=== PATIENT | female | born 1935 | race Caucasian/White ===

== ENCOUNTER 2017-08-10 07:44 | Observation (INO) ==
--- NOTE | 2017-08-10 07:58 | Emergency Department Note ---
Disposition Clinical Impression: TIA (transient ischemic attack) Qualifiers: Transient cerebral ischemia type: unspecified Qualified Code(s): G45.9 - Transient cerebral ischemic attack, unspecified Disposition: Admitted As Inpatient General Adult HPI - General Chief complaint: ED Altered Mental Status Time Seen by Provider: 08/10/17 07:47 Source: EMS Limitations: no limitations - History of Present Illness Pain Scale: 7 Past Medical History - Past Medical History Medical history: Reports: diabetes, hyperlipidemia, hypertension Psychiatric history: Reports: anxiety, depression - Social History Smoking Status: Never smoker Alcohol use: Reports: none Drug use: Reports: none Physical Exam - General Limitations: no limitations General appearance: alert, in no apparent distress Course Vital Signs Temperature 98.9 F 08/10/17 07:46 Pulse Rate 88 08/10/17 07:46 Respiratory Rate 18 08/10/17 07:46 Blood Pressure 199/75 08/10/17 07:46 O2 Sat by Pulse Oximetry 93 08/10/17 07:46 Temperature 98.9 F 08/10/17 07:46 Pulse Rate 88 08/10/17 07:46 Respiratory Rate 18 08/10/17 07:46 Blood Pressure 199/75 08/10/17 07:46 O2 Sat by Pulse Oximetry 93 08/10/17 07:46 Attestation Statement - Attestation Attestation: I examined this patient and my medical decision-making was reviewed with the Resident Physician. I agree with the documented findings, disposition and treatment plan as described except to the extent set forth below. 82 year old female prsentes to the ED with complaints of HTN and headache and stats that 1999 last night she starteed to experience some difficulty wiht speech in the fashion of trying to get out her words but no other focal neuro defecits. Katel[place]et went to sleep and this night it had worsened. WE will do TIA workp with admission to hospital for TIA r/o CVA
[2017-08-10] MEDS ORDERED: Metoclopramide 10 MG/2 ML VIAL IVP ONE (08:14)
[2017-08-10] MEDS ORDERED: 0.9 % Sodium Chloride 500 ML IVC ONE ×2 (08:14→09:37)
--- NOTE | 2017-08-10 08:14 | Emergency Department Note ---
Disposition Clinical Impression: TIA (transient ischemic attack) Qualifiers: Transient cerebral ischemia type: unspecified Qualified Code(s): G45.9 - Transient cerebral ischemic attack, unspecified Disposition: Admitted As Inpatient Forms: ED Satisfaction Letter General Adult HPI - General Chief complaint: ED Altered Mental Status Time Seen by Provider: 08/10/17 07:47 Source: EMS Mode of arrival: ambulatory Limitations: no limitations Nursing Notes Reviewed: Yes Vital Signs Reviewed: Yes - History of Present Illness HPI Narrative: Patient is an 82-year-old female DM, HTN, and HLD presents for evaluation of confusion. According to the patient last night around 8:00 PM she was experiencing confusion and stating questions such as asking her when he got home from work when in fact her was home the entire time. states that she continue to make remarks like this until going to bed and then this morning she is having difficulty recalling facts as well. She is also having difficulty thinking of the appropriate words to say when she was trying to speak. She denies any focal neurological deficits. She has complained of a headache around her left eye that is a 4/10 pain and pressure like that has been going on for the past 3 days. States that she has a history of migraines however this headache is not as intense as her migraines. The patient also states that she has been under a lot of stress due to her son having a debilitating terminal illness and she has been very upset about this. Pain Scale: 7 - Related Data Allergies Allergy/AdvReac Type Severity Reaction Status Date / Time Sulfa (Sulfonamide AdvReac See Verified 08/10/17 09:37 Antibiotics) Comments All systems ED: reviewed and negative except as stated. Review of Systems: As Per HPI Constitutional: Denies: fever, chills ENT ED: Denies: congestion Cardiovascular: Denies: chest pain, palpitations, dyspnea on exertion, orthopnea , edema, syncope Respiratory: Denies: cough, dyspnea, wheezes Gastrointestinal: Denies: abdominal pain, nausea, vomiting, diarrhea Genitourinary: Denies: urgency, dysuria Musculoskeletal: Denies: back pain, neck pain Integumentary: Denies: rash Neurological: Reports: headache, confusion. Denies: weakness, numbness, paresthesias, abnormal gait, vertigo Past Medical History - Past Medical History Attestation: Yes The following information was validated with the patient. Medical history: Reports: diabetes, hyperlipidemia, hypertension Psychiatric history: Reports: anxiety, depression - Social History Smoking Status: Never smoker Alcohol use: Reports: none Drug use: Reports: none Physical Exam CONSTITUTIONAL: Alert and oriented X3, well-nourished, well appearing, in no apparent distress HEAD: Normocephalic; atraumatic. EYES: PERRL, no scleral icterus. NOSE: The nose is normal in appearance without rhinorrhea RESP: Normal chest excursion with respiration; breath sounds clear and equal bilaterally; no wheezes, rhonchi, or rales CARD: Regular rhythm, without murmurs, rub or gallop ABD: Non-distended; non-tender, soft,without rigidity, rebound or guarding SKIN: Normal for age and race; warm and dry; no apparent lesions NEUROLOGICAL: Patient is alert and oriented times three. Cranial nerves III- XII are intact. Sensory and motor functions are intact. Strength is 5/5 for flexion and extension in all 4 extremities. Patellar DTRS are equal and intact. Finger to nose testing is equal and normal bilaterally. - General Limitations: no limitations General appearance: alert, in no apparent distress Course Course Narrative: Plan at this time is for an altered mental status workup of the patient which will include a head CT, cardiac evaluation, and investigation for any source of infection. We will also treat the patient's headache with a migraine cocktail excluding Toradol until her CT comes back negative. Pending results of lab work will determine disposition and consultation to neuro. Vital Signs Temperature 98.9 F 08/10/17 07:46 Pulse Rate 88 08/10/17 07:46 Respiratory Rate 18 08/10/17 07:46 Blood Pressure 199/75 08/10/17 07:46 O2 Sat by Pulse Oximetry 93 08/10/17 07:46 Temperature 98.9 F 08/10/17 07:46 Pulse Rate 88 08/10/17 07:46 Respiratory Rate 18 08/10/17 07:46 Blood Pressure 199/75 08/10/17 07:46 O2 Sat by Pulse Oximetry 93 08/10/17 07:46 Medical Decision Making - Medical Records Medical records reviewed: Yes I reviewed the patient's medical records. - Lab Data Result diagrams: 08/10/17 08:14 08/10/17 08:14 Lab Results 08/10/17 08/10/1718 Range/Units 07:54 08:14 08:14 WBC 8.9 (4.3-11.1) K/mcL RBC 4.02 (3.82-4.97) M/mcL Hgb 12.3 (11.5-15.4) g/dL Hct 36.3 (35.3-44.9) % MCV 90.3 (83.0-100.0) fL MCH 30.6 (28.0-33.3) pg MCHC 33.9 (31.6-35.5) g/dL RDW 12.1 (11.5-14.5) % Plt Count 328 (140-400) K/mcL MPV 8.7 L (9.4-12.4) fL Immature Gran % 0.4 (0-4) % Seg Neutrophils % 68.8 % Lymphocytes % 19.1 % Monocytes % 10.2 % Eosinophils % 0.8 % Basophils % 0.7 % Neutrophils # 6.1 (1.6-8.9) K/mcL Lymphocytes # 1.7 (0.6-4.6) K/mcL Monocytes # 0.9 (0.0-1.3) K/mcL Eosinophils # 0.1 (0.0-0.6) K/mcL Basophils # 0.1 (0.0-0.2) K/mcL PT 13.0 H (9.4-12.1) Seconds INR 1.2 APTT 32.2 (26.0-36.0) Seconds Sodium (136-145) mEq/L Potassium (3.5-5.1) mEq/L Chloride (98-107) mEq/L Carbon Dioxide (23-29) mEq/L BUN (8-23) mg/dL Creatinine (0.60-1.20) mg/dL Est GFR ( Amer) (> 60) Est GFR (Non-Af Amer) (> 60) BUN/Creatinine Ratio (6-26) Glucose (70-105) mg/dL POC Glucose 251 H (70-99) mg/dL Calculated Osmolality (280-300) Calcium (8.6-10.3) mg/dL Total Bilirubin (0.3-1.0) mg/dL Direct Bilirubin (0.0-0.2) mg/dL Indirect Bilirubin (0.0-1.2) mg/dL AST (13-39) Units/L ALT (7-52) Units/L Alkaline Phosphatase (34-104) Units/L Troponin I (< 0.04) ng/mL Serum Total Protein (6.4-8.9) g/dL Albumin (3.5-5.7) g/dL Globulin (2.4-3.5) g/dL Albumin/Globulin Ratio (1.1-2.2) TSH (0.340-5.600) mcIU/mL Ethyl Alcohol (Less than 10) mg/dL 08/10/17 Range/Units 08:14 WBC (4.3-11.1) K/mcL RBC (3.82-4.97) M/mcL Hgb (11.5-15.4) g/dL Hct (35.3-44.9) % MCV (83.0-100.0) fL MCH (28.0-33.3) pg MCHC (31.6-35.5) g/dL RDW (11.5-14.5) % Plt Count (140-400) K/mcL MPV (9.4-12.4) fL Immature Gran % (0-4) % Seg Neutrophils % % Lymphocytes % % Monocytes % % Eosinophils % % Basophils % % Neutrophils # (1.6-8.9) K/mcL Lymphocytes # (0.6-4.6) K/mcL Monocytes # (0.0-1.3) K/mcL Eosinophils # (0.0-0.6) K/mcL Basophils # (0.0-0.2) K/mcL PT (9.4-12.1) Seconds INR APTT (26.0-36.0) Seconds Sodium 130 L (136-145) mEq/L Potassium 3.8 (3.5-5.1) mEq/L Chloride 95 L (98-107) mEq/L Carbon Dioxide 24 (23-29) mEq/L BUN 26 H (8-23) mg/dL Creatinine 1.12 (0.60-1.20) mg/dL Est GFR ( Amer) 56 L (> 60) Est GFR (Non-Af Amer) 47 L (> 60) BUN/Creatinine Ratio 23 (6-26) Glucose 266 H (70-105) mg/dL POC Glucose (70-99) mg/dL Calculated Osmolality 284 (280-300) Calcium 9.1 (8.6-10.3) mg/dL Total Bilirubin 0.7 (0.3-1.0) mg/dL Direct Bilirubin 0.2 (0.0-0.2) mg/dL Indirect Bilirubin 0.5 (0.0-1.2) mg/dL AST 12 L (13-39) Units/L ALT 15 (7-52) Units/L Alkaline Phosphatase 66 (34-104) Units/L Troponin I 0.03 (< 0.04) ng/mL Serum Total Protein 7.5 (6.4-8.9) g/dL Albumin 3.8 (3.5-5.7) g/dL Globulin 3.7 H (2.4-3.5) g/dL Albumin/Globulin Ratio 1.0 L (1.1-2.2) TSH 1.831 (0.340-5.600) mcIU/mL Ethyl Alcohol 10 H (Less than 10) mg/dL - Radiology Data Radiology results reviewed: Yes I reviewed the patient's radiology results. Chest X-Ray 08/10/17 08:08 IMPRESSION: No acute process. D/ / Aldair Kirkpatrick MD / Aldair Kirkpatrick MD Interpreting Provider: Aldair Kirkpatrick MD Head CT 08/10/17 08:09 IMPRESSION: No acute intracranial abnormality. D/ / Aldair Kirkpatrick MD / Aldair Kirkpatrick MD Interpreting Provider: Aldair Kirkpatrick MD - EKG Data EKG #1 EKG attestation: Yes I reviewed and interpreted this EKG. EKG results narrative: EKG done at 7:47 shows sinus rhythm at a rate of 87 bpm. Normal axis. IN is 184, QRS is 90, QT is 366 and QTc is 410 and these are within normal limits. No signs of ST elevation, ST depression or Q waves present. No signs of ischemia.
[2017-08-10 08:32] LABS: Basophils # 0.1 K/mcL (0.0-0.2); Basophils % 0.7 %; Eosinophils # 0.1 K/mcL (0.0-0.6); Eosinophils % 0.8 %; Hematocrit 36.3 % (35.3-44.9); Hemoglobin 12.3 g/dL (11.5-15.4); Immature Granulocytes % 0.4 % (0-4); Lymphocytes # 1.7 K/mcL (0.6-4.6); Lymphocytes % 19.1 %; Mean Corpuscular HGB Conc 33.9 g/dL (31.6-35.5); Mean Corpuscular Hemoglobin 30.6 pg (28.0-33.3); Mean Corpuscular Volume 90.3 fL (83.0-100.0); Mean Platelet Volume 8.7 fL (9.4-12.4); Monocytes # 0.9 K/mcL (0.0-1.3); Monocytes % 10.2 %; Neutrophils # 6.1 K/mcL (1.6-8.9); Platelet Count 328 K/mcL (140-400); Red Blood Count 4.02 M/mcL (3.82-4.97); Red Cell Distribution Width 12.1 % (11.5-14.5); Segmented Neutrophils % 68.8 %
[2017-08-10 08:43] LABS: INR 1.2
[2017-08-10 08:45] LABS: Activated Partial Thrombo Time 32.2 Seconds (26.0-36.0)
[2017-08-10 08:55] LABS: Albumin 3.8 g/dL (3.5-5.7); Bilirubin,Direct 0.2 mg/dL (0.0-0.2); Bilirubin,Indirect 0.5 mg/dL (0.0-1.2); Bilirubin,Total 0.7 mg/dL (0.3-1.0); Calcium 9.1 mg/dL (8.6-10.3); Globulin 3.7 g/dL (2.4-3.5); Potassium 3.8 mEq/L (3.5-5.1); Total Protein 7.5 g/dL (6.4-8.9); Troponin I 0.03 ng/mL (< 0.04)
[2017-08-10 09:06] LABS: Thyroid Stimulating Hormone 1.831 mcIU/mL (0.340-5.600)
[2017-08-10 10:45] LABS: Bilirubin,Urine Negative (Negative); Blood,Urine Trace-lysed (Negative); Clarity,Urine Clear (Clear); Color,Urine Yellow (Yellow); Glucose,Urine (UA) Normal (Normal); Ketones,Urine Trace mg/dL (Negative); Leukocyte Esterase,Urine Large (Negative); Nitrite,Urine Negative (Negative); PH,Urine 6.5 pH Units (5.0-8.0); Protein,Urine 30 mg/dL (Neg-Trace); Urobilinogen,Urine Normal (Normal)
[2017-08-10 10:55] LABS: Bacteria,Urine Many per hpf (None-Few); RBC,Urine 0-3 per hpf (0-3)
--- NOTE | 2017-08-10 13:12 | Internal Med History&Physical ---
Date of Encounter: 08/10/17 Time of Encounter: 13:10 Internal Medicine - H&P: HPI Admitted From: Emergency Dept Plans for Post Hospital Care: Home History of present illness: Ms. Main is a 82 year old female diabetes, HTN, hypothyroidism, anxiety, and HLD. Pt states 3 nights ago she was having a bad sinus CHAVARRIA. She states last night around 8pm she was confused and talking strange. Her who was at bedside during evaluation state pt was having difficulty finding her words. Pt also states she has noticed some jerky movements in her hands. She states her jerky movements resolved since she stopped taking Duloxetine on Fri. Both pt and states they have both been under a lot of stress. They have 2 children and their son was diagnosed with a rare disorder called MSA. He been battling the condition for 8 years now. Pt states things are nearing the end. In ED WBC 8.9, hgb 12.3, hct 36.3, plt 328. PT 13.0, INR 1.2. Na 130, K 3.8, BUN 26, C 1.12 AST 12, ALT 15, Alk phos 66. Urine analysis trace ketones, trace blood, neg nitrite, many bacteria. CT head non-contrast IMPRESSION: No acute intracranial abnormality. Chest x ray IMPRESSION: No acute process. Past Med Surg Social Fam HX - Past Medical History Medical history: diabetes, hyperlipidemia, hypertension, thyroid disease Psychiatric history: anxiety, depression - Social History Smoking Status: Never smoker Alcohol use: none Drug use: none Internal Medicine - H&P: Meds Acetaminophen [Tylenol] 1,000 mg PO TID PRN 08/10/17 [History] Aspirin [Lo-Dose Aspirin EC] 81 mg PO DAILY 08/10/17 [History] Cholecalciferol (D-3) [Vitamin D] 2,000 unit PO DAILY 08/10/17 [History] DULoxetine [Cymbalta] 40 mg PO DAILY 08/10/17 [History] Doxazosin Mesylate [Cardura] 2 mg PO HS 08/10/17 [History] Gabapentin [Neurontin] 400 mg PO BID 08/10/17 [History] Gabapentin [Neurontin] 800 mg PO HS 08/10/17 [History] Levothyroxine [Synthroid] 50 mcg PO 0630 08/10/17 [History] Lovastatin [Lovastatin] 40 mg PO HS 08/10/17 [History] Metoprolol [Lopressor] 50 mg PO BID 08/10/17 [History] Multivit-Min/FA/Lycopen/Lutein [Centrum Silver Tablet] 1 tab PO DAILY 08/10/17 [ History] Sitagliptin Phosphate [Januvia] 50 mg PO DAILY 08/10/17 [History] Valsartan [Valsartan] 320 mg PO DAILY 08/10/17 [History] glipiZIDE [Glucotrol] 5 mg PO BID 08/10/17 [History] hydroCHLOROthiazide [Hydrochlorothiazide] 25 mg PO DAILY 08/10/17 [History] 3 Allergy/AdvReac Type Severity Reaction Status Date / Time Sulfa (Sulfonamide AdvReac See Verified 08/10/17 09:37 Antibiotics) Comments All Systems PM: A 10-system review of systems was performed and is negative for pertinent findings except as documented above in the HPI. - Constitutional Vitals: Temp Pulse Resp BP Pulse Ox 98.9 F 88 18 199/75 93 08/10/17 07:46 08/10/17 07:46 08/10/17 07:46 08/10/17 07:46 08/10/17 07:46 General appearance: Present: A&O X 3, no acute distress - Head Head exam: Present: atraumatic, normocephalic - Eye Eye exam: Present: PERRL, conjuntiva pink, sclera anicteric Pupils: Present: PERRL - Neck Neck exam general surgery: Present: supple, trachea midline. Absent: lymphadenopathy - Respiratory Respiratory exam: Present: CTAB. Absent: accessory muscle use, rales, rhonchi, wheezes - Cardiovascular Cardiovascular exam: Present: RRR, +S1, +S2. Absent: diastolic murmur, gallop, rubs, systolic murmur - GI/Abdominal GI/Abdominal exam: Present: normal bowel sounds, soft, no peritoneal signs. Absent: distended, tenderness - Extremities Exam Extremities exam: Present: warm, radial pulses palpable and symmetrical. Absent : calf tenderness, cyanotic, pedal edema - Neurological Exam Neurological exam: Present: CN II-XII intact, oriented X3, no focal deficits. Absent: pronater drift, facial droop, speech deficit - Skin Skin exam: Present: dry, intact Internal Med - H&P Results - Labs CBC & Chem 7: 08/10/17 08:14 08/10/17 08:14 - Assessment and plan (1) TIA (transient ischemic attack) Current Visit: Yes Status: Acute Assessment and plan: Pt states she was having difficulty finding words. She thinks this may be related to her Duloxetine. She denies difficulty swallowing, walking or any other focal weakness. Her symptoms have completely resolved. Will check MRI brain/MRA/Bilateral carotid doppler/echo. Qualifiers: Transient cerebral ischemia type: unspecified Qualified Code(s): G45.9 - Transient cerebral ischemic attack, unspecified (2) Abnormal urine Current Visit: Yes Status: Acute Assessment and plan: Will check urine culture and sensitivity. (3) HTN (hypertension) Current Visit: Yes Status: Chronic Assessment and plan: HCTX, lopressor, and Valsartan Qualifiers: Qualified Code(s): I10 - Essential (primary) hypertension (4) HLD (hyperlipidemia) Current Visit: Yes Status: Chronic Assessment and plan: Will resume home dose statin Qualifiers: Qualified Code(s): E78.5 - Hyperlipidemia, unspecified (5) Diabetes type 2, controlled Current Visit: Yes Status: Chronic Assessment and plan: Glipizide and Sitagliptin Qualifiers: Qualified Code(s): E11.9 - Type 2 diabetes mellitus without complications (6) Anxiety and depression Current Visit: Yes Status: Acute Assessment and plan: Will hold Duloxetine for now. - Time Spent With Patient Total time spent is greater than 50% in coordination of care (as documented) at patient's floor/unit and/or counseling patient: 25 - 35 minutes
--- NOTE | 2017-08-10 14:32 | Neurology - Consult Note ---
Date of Encounter: 08/10/17 Time of Encounter: 14:26 Assessment and Plan (1) TIA (transient ischemic attack) Current Visit: Yes Status: Acute 82 year old woman with HTN, DM, arthritis on Gabapentin, depression on Cymbalta who developed acute onset of confusion and word finding difficulty, with rapid improvement withintn 24 hours, without focal neurological deficits. Symptoms are most consistent with mild diffuse encephalopathy and i suspect hyperglycemia and/or elevated BP causing her symptoms, although small embolic event can be missed on CT of head. Agree with TIA/CVA work up including MRI of brain, carotid artery duplex and echocardiography. Agree with aspirin 81mg daily. Continue medical and supportive care. Expect her to continue to improve. total time spent on the case is approximately 50 minutes Qualifiers: Transient cerebral ischemia type: unspecified Qualified Code(s): G45.9 - Transient cerebral ischemic attack, unspecified History of Present Illness Chief complaint: headache, confusion HPI: Ms. Main is a 82 year old female 82 year old woman with PMH significant for HTN , DM, obesity, depression on Cymbalta, arthritic pain on Gabapentin who developed acute onset of confusion, word finding difficulty last night, with few days history of nagging fontal headache. Patient interviewed in the presence of her . Patient was in her usual state of health. She always has headaches but it was not a usual feature any more but over the last few days she has been having this frontal headache, what she called 'sinus headache ' since the last few days. Last evening she suddenly developed confusion and able to talk but apparently what she talked was not making sense. She was having difficulty finding the right works. She used to do very well with word puzzles. In the morning she still has the problems she slightly improved. She consulted her PCP who advised her to go to ER. CT of head was reported normal study. Nothing unusual prior to the onset of the symptoms. She did mention that her son is diagnosed with MSA and this caused lots of depression and she has been taking cymbalta for about 6 months and that she does not like the medicine. She also takes gabapentin 400mg tid for arthritic pain and it does help. Past Med Surg Social Fam HX - Past Medical History Medical history: diabetes, hyperlipidemia, hypertension, thyroid disease Psychiatric history: anxiety, depression - Past Surgical History Surgical History: hysterectomy Additional surgical history: gallbladder removed - Social History Smoking Status: Never smoker Smokeless Tobacco Status: No Alcohol use: none Drug use: none - Family History Father Hx Family Medical Disorders: Yes (CVA) Medications and Allergies Acetaminophen [Tylenol] 1,000 mg PO TID PRN 08/10/17 [History] Aspirin [Lo-Dose Aspirin EC] 81 mg PO DAILY 08/10/17 [History] Cholecalciferol (D-3) [Vitamin D] 2,000 unit PO DAILY 08/10/17 [History] DULoxetine [Cymbalta] 40 mg PO DAILY 08/10/17 [History] Doxazosin Mesylate [Cardura] 2 mg PO HS 08/10/17 [History] Gabapentin [Neurontin] 400 mg PO BID 08/10/17 [History] Gabapentin [Neurontin] 800 mg PO HS 08/10/17 [History] Levothyroxine [Synthroid] 50 mcg PO 0630 08/10/17 [History] Lovastatin [Lovastatin] 40 mg PO HS 08/10/17 [History] Metoprolol [Lopressor] 50 mg PO BID 08/10/17 [History] Multivit-Min/FA/Lycopen/Lutein [Centrum Silver Tablet] 1 tab PO DAILY 08/10/17 [ History] Sitagliptin Phosphate [Januvia] 50 mg PO DAILY 08/10/17 [History] Valsartan [Valsartan] 320 mg PO DAILY 08/10/17 [History] glipiZIDE [Glucotrol] 5 mg PO BID 08/10/17 [History] hydroCHLOROthiazide [Hydrochlorothiazide] 25 mg PO DAILY 08/10/17 [History] 3 Allergy/AdvReac Type Severity Reaction Status Date / Time Sulfa (Sulfonamide AdvReac See Verified 08/10/17 09:37 Antibiotics) Comments All Systems: The remainder of the systems were reviewed and are negative Physical Examination - Vital Signs Vital Signs: Initial Vital Signs Temp Pulse Resp BP Pulse Ox 98.9 F 88 18 199/75 93 08/10/17 07:46 08/10/17 07:46 08/10/17 07:46 08/10/17 07:46 08/10/17 07:46 - Constitutional General appearance: comfortable - Neurologic Detailed motor examination: full strength in all major muscle groups Motor examination - right side: 5/5: deltoids, biceps, triceps, wrist flexion, wrist extension, buckle and button maker, hip flexors, tibialis Anterior, quadriceps, toe extension (EHL), plantarflexion Motor examination - left side: 5/5: deltoids, biceps, triceps, wrist flexion, wrist extension, hip flexors, buckle and button maker, quadriceps, tibialis Anterior, toe extension (EHL), plantarflexion Detailed sensory examination: intact Posture: other (None) Reflex and gait examination: intact Reflexes: Biceps: 1+, Triceps: 1+, Brachioradialis: 1+, Patella: 1+, Achilles: 1 + Mental Status Examination: awake, alert, oriented to person, oriented to place, oriented to time, follows commands appropriately, answers questions appropriately, no agnosia, no aphasia, no aproxia Cranial nerve examination: PERRL, EOMI, visual catalan intact, corneal reflexes brisk symmetrically, sensory to face intact, mastication intact, no facial asymmetry is present, no dysarthria, hearing is intact symmetrically, soft palate elevates bilaterally upon phonation, gag reflex intact, flexes SCM and trapezius muscles symmetrically with full power, tongue protrudes midline, no atrophy or facial fasiculations present Cerebellar examination: no dysmetria, performs finger to nose and heel to alvarado symmetrically without ataxia, no gait ataxia, no truncal ataxia, no difficulty with rapid alternating movements Results - Laboratory Findings CBC and BMP: 08/10/17 08:14 08/10/17 08:14 Abnormal lab findings: Abnormal lab results MPV 8.7 fL (9.4-12.4) L 08/10/17 08:14 PT 13.0 Seconds (9.4-12.1) H 08/10/17 08:14 Sodium 130 mEq/L (136-145) L 08/10/17 08:14 Chloride 95 mEq/L (98-107) L 08/10/17 08:14 BUN 26 mg/dL (8-23) H 08/10/17 08:14 Est GFR ( Amer) 56 (> 60) L 08/10/17 08:14 Est GFR (Non-Af Amer) 47 (> 60) L 08/10/17 08:14 Glucose 266 mg/dL (70-105) H 08/10/17 08:14 POC Glucose 251 mg/dL (70-99) H 08/10/17 07:54 AST 12 Units/L (13-39) L 08/10/17 08:14 Globulin 3.7 g/dL (2.4-3.5) H 08/10/17 08:14 Albumin/Globulin Ratio 1.0 (1.1-2.2) L 08/10/17 08:14 Urine Protein 30 mg/dL (Neg-Trace) H 08/10/17 10:33 Urine Ketones Trace mg/dL (Negative) H 08/10/17 10:33 Urine Blood Trace-lysed (Negative) H 08/10/17 10:33 Ur Leukocyte Esterase Large (Negative) H 08/10/17 10:33 Urine Microscopic WBC 3-5 per hpf (0-3) H 08/10/17 10:33 Urine Bacteria Many per hpf (None-Few) H 08/10/17 10:33 Ur Culture Indicated? YES (NO) A 08/10/17 10:33 Ethyl Alcohol 10 mg/dL (Less than 10) H 08/10/17 08:14 - Diagnostic Findings Additional findings: CT OF THE HEAD WITHOUT CONTRAST 08/10/2017 8:43 am TECHNIQUE: CT of the head was performed without the administration of intravenous contrast. Dose modulation, iterative reconstruction, and/or weight based adjustment of the mA/kV was utilized to reduce the radiation dose to as low as reasonably achievable. COMPARISON: None. HISTORY: ORDERING SYSTEM PROVIDED HISTORY: altered mental status FINDINGS: BRAIN/VENTRICLES: There is no acute intracranial hemorrhage, mass effect or midline shift. No abnormal extra-axial fluid collection. The temple-white differentiation is maintained without evidence of an acute infarct. There is prominence of the ventricles and sulci due to global parenchymal volume loss. There are nonspecific areas of hypoattenuation within the periventricular and subcortical white matter, which likely represent chronic microvascular ischemic change. ORBITS: The visualized portion of the orbits demonstrate no acute abnormality. SINUSES: There is chronic dense opacification of the left maxillary and ethmoid sinuses. SOFT TISSUES/SKULL: No acute abnormality of the visualized skull or soft tissues. CT/CT head/brain wo con IMPRESSION: No acute intracranial abnormality. D/ / Aldair Kirkpatrick MD / Aldair Kirkpatrick MD Interpreting Provider: Aldair Kirkpatrick MD Consult Discharge Plan - Plan Referrals: Jeffrey Cano, [Primary Care Provider] -
[2017-08-10] MEDS ORDERED: Naloxone 0.4 MG/ML INJ IVP PRN (15:02)
[2017-08-10] MEDS ORDERED: Acetaminophen 325 MG TABLET PO PRN (15:02)
[2017-08-10] MEDS: Gabapentin 100 MG CAPSULE PO SCH ×2 (15:55→20:11)
[2017-08-10] MEDS: *HR* GlipiZIDE 5 MG TABLET PO SCH (20:11)
[2017-08-11 05:30] LABS: Basophils % 0.5 %; Eosinophils # 0.2 K/mcL (0.0-0.6); Hematocrit 35.3 % (35.3-44.9); Hemoglobin 12.1 g/dL (11.5-15.4); Immature Granulocytes % 0.5 % (0-4); Lymphocytes # 1.9 K/mcL (0.6-4.6); Lymphocytes % 25.2 %; Mean Corpuscular HGB Conc 34.3 g/dL (31.6-35.5); Mean Corpuscular Hemoglobin 30.6 pg (28.0-33.3); Mean Corpuscular Volume 89.4 fL (83.0-100.0); Mean Platelet Volume 8.5 fL (9.4-12.4); Monocytes # 0.9 K/mcL (0.0-1.3); Monocytes % 11.9 %; Neutrophils # 4.6 K/mcL (1.6-8.9); Platelet Count 322 K/mcL (140-400); Red Blood Count 3.95 M/mcL (3.82-4.97); Segmented Neutrophils % 59.9 %
[2017-08-11 05:52] LABS: INR 1.3; Prothrombin Time 13.7 Seconds (9.4-12.1)
[2017-08-11 05:58] LABS: Alanine Aminotransferase 15 Units/L (7-52); Albumin 3.5 g/dL (3.5-5.7); Albumin/Globulin Ratio 0.9 (1.1-2.2); Alkaline Phosphatase 59 Units/L (34-104); Aspartate Amino Transferase 15 Units/L (13-39); BUN/Creatinine Ratio 18 (6-26); Bilirubin,Total 0.7 mg/dL (0.3-1.0); Blood Urea Nitrogen 17 mg/dL (8-23); Calcium 9.1 mg/dL (8.6-10.3); Carbon Dioxide 27 mEq/L (23-29); Chloride 98 mEq/L (98-107); Chol/HDL Ratio 3.2 (0-4.9); Cholesterol 107 mg/dL (< 200); Globulin 3.7 g/dL (2.4-3.5); Glucose 193 mg/dL (70-105); HDL Cholesterol 33 mg/dL (40-59); LDL Cholesterol,Calculated 53 mg/dL (0-99); Osmolality,Calculated 285 (280-300); Potassium 3.7 mEq/L (3.5-5.1); Sodium 134 mEq/L (136-145); Total Protein 7.2 g/dL (6.4-8.9); Triglycerides 107 mg/dL (< 150); eGFR For African Americans > 60 (> 60); eGFR For Non-African Americans 55 (> 60)
[2017-08-11 06:00] LABS: Troponin I 0.05 ng/mL (< 0.04)
[2017-08-11 07:29] LABS: Estimated Average Glucose 169 mg/dl; Hemoglobin A1C 7.5 %
[2017-08-11] MEDS: Gabapentin 100 MG CAPSULE PO SCH ×3 (07:56→21:04)
[2017-08-11] MEDS: hydroCHLOROthiazide 25 MG TABLET PO SCH (07:56)
[2017-08-11] MEDS: Aspirin Enteric Coated 81 MG Tablet PO SCH (07:56)
[2017-08-11] MEDS: Cholecalciferol (D-3) 1,000 UNIT TABLET PO SCH (07:57)
[2017-08-11] MEDS: Valsartan 160 MG TABLET PO SCH (07:57)
[2017-08-11] MEDS: *HR* GlipiZIDE 5 MG TABLET PO SCH ×2 (07:57→21:04)
[2017-08-11] MEDS: *HR* SitaGLIPtin 25 MG TABLET PO SCH (07:57)
--- NOTE | 2017-08-11 13:26 | Neurology Progress Note ---
Date of Encounter: 08/11/17 Time of Encounter: 13:24 Assessment and Plan (1) TIA (transient ischemic attack) Current Visit: Yes Status: Acute 82 year old woman with HTN, DM, arthritis on Gabapentin, depression on Cymbalta who developed acute onset of confusion and word finding difficulty, with rapid improvement withintn 24 hours, without focal neurological deficits. Symptoms are most consistent with mild diffuse encephalopathy and i suspect hyperglycemia and/or elevated BP causing her symptoms, although small embolic event can be missed on CT of head. Symptoms resolved. Agree with TIA/CVA work up including MRI of brain, carotid artery duplex and echocardiography. Agree with aspirin 81mg daily and statin therapy. Await carotid artery duplex study and MRI of brain. Qualifiers: Transient cerebral ischemia type: unspecified Qualified Code(s): G45.9 - Transient cerebral ischemic attack, unspecified Subjective Principal diagnosis: confusion Interval history: Patient seen and examined. She is feeling much and back to herself, after and good night sleep. No significant complaints now. Echocardiography showed normal LVEF, no significant valvular dysfunction, no significant regional wall motion abnormality. Await carotid artery duplex and MRI of brain without contrast. Objective - Constitutional Vitals: Temp Pulse Resp BP Pulse Ox 98.0 F 65 16 133/58 94 08/11/17 11:29 08/11/17 11:29 08/11/17 11:29 08/11/17 11:29 08/11/17 11:29 - Neurological Exam Sensorimotor examination: Present: intact Motor Examination: Present: full strength in all major muscle groups Motor examination - right side: 5/5: deltoids, biceps, triceps, wrist flexion, wrist extension, systems security consultant, hip flexors, tibialis Anterior, quadriceps, toe extension (EHL), plantarflexion Motor examination - left side: 5/5: deltoids, biceps, triceps, wrist flexion, wrist extension, hip flexors, systems security consultant, quadriceps, tibialis Anterior, toe extension (EHL), plantarflexion Sensation intact: Present: intact Posture: Present: other (None) Reflex and gait examination: intact Reflexes: Biceps: 2+, Triceps: 2+, Brachioradialis: 2+, Patella: 2+, Achilles: 2 + Mental Status Examination: Present: awake, alert, oriented to person, oriented to place, oriented to time, follows commands appropriately, answers questions appropriately, no agnosia, no aphasia, no aproxia Cranial nerve examination: Present: PERRL, EOMI, visual catalan intact, corneal reflexes brisk symmetrically, sensory to face intact, mastication intact, no facial asymmetry is present, no dysarthria, hearing is intact symmetrically, soft palate elevates bilaterally upon phonation, gag reflex intact, flexes SCM and trapezius muscles symmetrically with full power, tongue protrudes midline, no atrophy or facial fasiculations present Cerebellar examination: Present: no dysmetria, performs finger to nose and heel to alvarado symmetrically without ataxia, no gait ataxia, no truncal ataxia, no difficulty with rapid alternating movements Results - Laboratory Findings CBC and BMP: 08/11/17 05:15 08/11/17 05:15 Abnormal lab findings: Abnormal lab results MPV 8.5 fL (9.4-12.4) L 08/11/17 05:15 PT 13.7 Seconds (9.4-12.1) H 08/11/17 05:15 Sodium 134 mEq/L (136-145) L 08/11/17 05:15 Est GFR (Non-Af Amer) 55 (> 60) L 08/11/17 05:15 Glucose 193 mg/dL (70-105) H 08/11/17 05:15 POC Glucose 283 mg/dL (70-99) H 08/10/17 18:39 Hemoglobin A1c 7.5 % (-5.6) H 08/10/17 08:14 Troponin I 0.05 ng/mL (< 0.04) H* 08/11/17 11:04 Globulin 3.7 g/dL (2.4-3.5) H 08/11/17 05:15 Albumin/Globulin Ratio 0.9 (1.1-2.2) L 08/11/17 05:15 HDL Cholesterol 33 mg/dL (40-59) L 08/11/17 05:15 Urine Protein 30 mg/dL (Neg-Trace) H 08/10/17 10:33 Urine Ketones Trace mg/dL (Negative) H 08/10/17 10:33 Urine Blood Trace-lysed (Negative) H 08/10/17 10:33 Ur Leukocyte Esterase Large (Negative) H 08/10/17 10:33 Urine Microscopic WBC 3-5 per hpf (0-3) H 08/10/17 10:33 Urine Bacteria Many per hpf (None-Few) H 08/10/17 10:33 Ur Culture Indicated? YES (NO) A 08/10/17 10:33 Ethyl Alcohol 10 mg/dL (Less than 10) H 08/10/17 08:14 Consult Discharge Plan - Plan Referrals: Jeffrey Cano, [Primary Care Provider] -
--- NOTE | 2017-08-11 15:32 | Electrocardiograph Report ---
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
--- NOTE | 2017-08-11 15:35 | Electrocardiograph Report ---
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
--- NOTE | 2017-08-11 17:03 | Internal Med Progress Note ---
Date of Encounter: 08/11/17 Time of Encounter: 12:15 - Assessment and plan (1) Abnormal urine Current Visit: Yes Status: Acute Assessment and plan: UA indicative of urinary tract infection. Initial culture shows gram-negative rods. Will start Rocephin 1 g IV daily Narrowing antibiotic choice when final culture sensitivity are available. (2) Anxiety and depression Current Visit: Yes Status: Acute Assessment and plan: Chronic. Patient reports that she has been feeling better since she has not been taking her home dose of antidepressant. He has not been continued here. Patient will need to follow-up with primary care for change in medications. (3) Diabetes type 2, controlled Current Visit: Yes Status: Acute Assessment and plan: Continue SSI, accuchecks achs, and diabetic diet. A1c 7.5% Qualifiers: Diabetes mellitus care home insulin use: without care home use Diabetes mellitus complication status: with unspecified complications Qualified Code(s) : E11.8 - Type 2 diabetes mellitus with unspecified complications (4) HLD (hyperlipidemia) Current Visit: Yes Status: Acute Assessment and plan: Lipid panel within normal limits. Continue home medications. Qualifiers: Hyperlipidemia type: unspecified Qualified Code(s): E78.5 - Hyperlipidemia , unspecified (5) HTN (hypertension) Current Visit: Yes Status: Chronic Assessment and plan: Patient with mild hypertension, will wait on results of the MRIs prior to aggressively treating. Continue to monitor vital signs per admission orders. Qualifiers: Hypertension type: essential hypertension Qualified Code(s): I10 - Essential (primary) hypertension (6) TIA (transient ischemic attack) Current Visit: Yes Status: Acute Assessment and plan: Patient reports having a few left frontal and left temporal headache for 3 days as well as increasing confusion and difficulty finding words for same amount time. She reports that this is not her usual kind of headache and she also reports dizziness with headache and confusion. She states that she did not pay much attention to it since she thought that it was from her new antidepressant. He has returned to baseline. She has no focal neurological deficits and strength is strong and equal in all extremities. Head CT was negative for acute intracranial abnormality area of echocardiogram shows LVEF of 55-60% with mild LV DD, no significant valvular dysfunction. No PFO noted with agitated saline. Bilateral carotids are within normal limits and nonstenotic plaque is noted throughout. MRA/MRI still pending. Patient has been evaluated by neurology, I appreciate Dr. Marie's recommendations. Recommendations include continuing aspirin and statin therapy. We will continue to follow until all results have returned. Continue to monitor for falls and safety Continue and NIHSS Continue aspirin, statin Qualifiers: Transient cerebral ischemia type: unspecified Qualified Code(s): G45.9 - Transient cerebral ischemic attack, unspecified (7) Word finding difficulty Current Visit: Yes Status: Resolved Assessment and plan: Resolved. (8) DVT prophylaxis Current Visit: Yes Status: Acute Assessment and plan: SCDs - Time Spent With Patient Total time spent is greater than 50% in coordination of care (as documented) at patient's floor/unit and/or counseling patient: - Subjective Interval history: Patient was seen and assessed at bedside at 12:15. is at bedside. Patient is alert, oriented, pleasant. She has no focal neurological deficits and answers questions appropriately. She denies any headache, nausea, vomiting , diarrhea chest pain or shortness of breath. She denies any increasing peripheral edema or shortness of breath. - Constitutional Vitals: Temp Pulse Resp BP Pulse Ox 98.6 F 67 16 185/70 94 08/11/17 15:27 08/11/17 15:27 08/11/17 15:27 08/11/17 15:27 08/11/17 15:27 General appearance: Present: cooperative, A&O X 3, morbidly obese, pleasant, no acute distress, answers questions appropriately - Head Head exam: Present: atraumatic, normal inspection, normocephalic - Eye Eye exam: Present: normal appearance, conjuntiva pink, sclera anicteric - Neck Neck exam general surgery: Present: supple, trachea midline. Absent: lymphadenopathy, tenderness - Respiratory Respiratory exam: Present: CTAB. Absent: accessory muscle use, chest wall tenderness, rales, respiratory distress, rhonchi, wheezes - Cardiovascular Cardiovascular exam: Present: RRR, +S1, +S2. Absent: diastolic murmur, gallop, rubs, systolic murmur - GI/Abdominal GI/Abdominal exam: Present: normal bowel sounds, soft, no peritoneal signs. Absent: distended, hepatomegaly, tenderness - Extremities Exam Extremities exam: Present: normal capillary refill, normal inspection, pedal edema, warm, radial pulses palpable and symmetrical. Absent: calf tenderness, cyanotic, tenderness - Neurological Exam Neurological exam: Present: alert, CN II-XII intact, oriented X3, no focal deficits, strengths equal and symetr throughout. Absent: abnormal gait, altered , motor sensory deficit, facial droop, speech deficit - Skin Skin exam: Present: dry, intact, warm. Absent: rash Internal Medicine: Result - Labs CBC & Chem 7: 08/11/17 05:15 08/11/17 05:15 Labs: Short CBC 08/11/17 Range/Units 05:15 WBC 7.6 (4.3-11.1) K/mcL Hgb 12.1 (11.5-15.4) g/dL Hct 35.3 (35.3-44.9) % Plt Count 322 (140-400) K/mcL Neutrophils # 4.6 (1.6-8.9) K/mcL BMP 08/11/17 05:15 Sodium 134 L Potassium 3.7 Chloride 98 Carbon Dioxide 27 BUN 17 Creatinine 0.97 Glucose 193 H Calcium 9.1 Cardiac Enzymes 08/11/17 08/11/17 Range/Units 05:15 11:04 Troponin I 0.05 H* 0.05 H* (< 0.04) ng/mL Liver Function 08/11/17 Range/Units 05:15 Total Bilirubin 0.7 (0.3-1.0) mg/dL AST 15 (13-39) Units/L ALT 15 (7-52) Units/L Alkaline Phosphatase 59 (34-104) Units/L Albumin 3.5 (3.5-5.7) g/dL - ABG Interpretation ABG results: PT/INR, D-dimer PT 13.7 Seconds (9.4-12.1) H 08/11/17 05:15 - Impressions Impressions Echocardiogram 08/11/17 09:18 Impressions: LVEF 55-60%. Normal LV chamber size, wall thickness and function. Mild left ventricular diastolic dysfunction. Normal right ventricular structure and function. Unable to estimate RVSP due to lack of TR jet. No significant valvular dysfunction. Negative agitated saline study for intra-cardiac shunting. Left Ventricular Wall Motion: Rest Echo Findings All wall segments showed normal motion. Findings: Study Quality * Technically adequate exam. ECG Findings * Sinus bradycardia. Left Ventricle * LVEF 55-60%. * Normal LV chamber size, wall thickness and function. * Mild left ventricular diastolic dysfunction. Right Ventricle * Normal right ventricular structure and function. Left Atrium * Moderately dilated left atrium. Right Atrium * Normal right atrial size. Aortic Valve * Trileaflet aortic valve with normal function. * No aortic regurgitation. * No aortic stenosis. Mitral Valve * Mild to moderate mitral annular calcification * No mitral stenosis. * Trace mitral regurgitation. Tricuspid Valve * Normal tricuspid valve structure and function. * No tricuspid regurgitation. * Unable to estimate RVSP due to lack of TR jet. Pulmonic Valve * Normal pulmonic valve structure and function. * No pulmonic regurgitation. Aorta * Normally sized aortic root. Pericardium * The pericardium appears normal. IVC * Normal IVC dimensions and inspiratory collapse. Pulmonary Artery * Normal visualized portions of the main pulmonary artery. Consult Discharge Plan - Plan Referrals: Jeffrey Cano DO [Primary Care Provider] -
[2017-08-11] MEDS ORDERED: CefTRIAXone 1,000 MG VIAL IM ONE (17:06)
[2017-08-11] MEDS ORDERED: cefTRIAXone 1,000 MG in Water for inj. (sterile) 20 ML 10 ML IVP ONE (19:52)
[2017-08-12] MEDS: Valsartan 160 MG TABLET PO SCH (08:33)
[2017-08-12] MEDS: Aspirin Enteric Coated 81 MG Tablet PO SCH (08:33)
[2017-08-12] MEDS: hydroCHLOROthiazide 25 MG TABLET PO SCH (08:34)
[2017-08-12] MEDS: *HR* SitaGLIPtin 25 MG TABLET PO SCH (08:34)
[2017-08-12] MEDS: *HR* GlipiZIDE 5 MG TABLET PO SCH (08:34)
[2017-08-12] MEDS: Cholecalciferol (D-3) 1,000 UNIT TABLET PO SCH (08:34)
[2017-08-12] MEDS: Gabapentin 100 MG CAPSULE PO SCH ×2 (08:35→14:50)
[2017-08-12 11:01] VITALS: BP 153/65
--- NOTE | 2017-08-12 12:32 | Neurology Progress Note ---
Date of Encounter: 08/12/17 Time of Encounter: 12:28 Assessment and Plan (1) TIA (transient ischemic attack) Current Visit: Yes Status: Acute Patient developed transient confusion lasting less than 2 4hours with total resolution. TIA/CVA work up are negative. Likely the symptoms can be related to hyperglycemia and other medical issues. Will recommend aspirin 81mg daily and statin therapy. Patient okay to be discharged home from neurology perspective. Qualifiers: Transient cerebral ischemia type: unspecified Qualified Code(s): G45.9 - Transient cerebral ischemic attack, unspecified Subjective Principal diagnosis: confusion Interval history: Patient seen and examined. She is feeling much and back to herself, after and good night sleep. No significant complaints now. Echocardiography showed normal LVEF, no significant valvular dysfunction, no significant regional wall motion abnormality. MRI of brain showed no evidence of stroke. carotid artery duplex returned unremarkable. MRA of brain and neck showed questionable right vertebral artery stenosis and other than that no significant flow limiting major branch artery stenosis She is back to normal and wants to go home Objective - Constitutional Vitals: Temp Pulse Resp BP Pulse Ox 98 F 57 17 153/65 95 08/12/17 10:53 08/12/17 10:53 08/12/17 10:53 08/12/17 10:53 08/12/17 10:53 - Neurological Exam Sensorimotor examination: Present: intact Motor Examination: Present: full strength in all major muscle groups Motor examination - right side: 5/5: deltoids, biceps, triceps, wrist flexion, wrist extension, chief operating officer, hip flexors, tibialis Anterior, quadriceps, toe extension (EHL), plantarflexion Motor examination - left side: 5/5: deltoids, biceps, triceps, wrist flexion, wrist extension, hip flexors, chief operating officer, quadriceps, tibialis Anterior, toe extension (EHL), plantarflexion Sensation intact: Present: intact Posture: Present: other (None) Reflex and gait examination: intact Mental Status Examination: Present: awake, alert, oriented to person, oriented to place, oriented to time, follows commands appropriately, answers questions appropriately, no agnosia, no aphasia, no aproxia Cranial nerve examination: Present: PERRL, EOMI, visual catalan intact, corneal reflexes brisk symmetrically, sensory to face intact, mastication intact, no facial asymmetry is present, no dysarthria, hearing is intact symmetrically, soft palate elevates bilaterally upon phonation, gag reflex intact, flexes SCM and trapezius muscles symmetrically with full power, tongue protrudes midline, no atrophy or facial fasiculations present Cerebellar examination: Present: no dysmetria, performs finger to nose and heel to alvarado symmetrically without ataxia, no gait ataxia, no truncal ataxia, no difficulty with rapid alternating movements - VTE Documentation of Mechanical Device: Intermittent pneumatic compression device Results - Laboratory Findings CBC and BMP: 08/11/17 05:15 08/11/17 05:15 Abnormal lab findings: Abnormal lab results MPV 8.5 fL (9.4-12.4) L 08/11/17 05:15 PT 13.7 Seconds (9.4-12.1) H 08/11/17 05:15 Sodium 134 mEq/L (136-145) L 08/11/17 05:15 Est GFR (Non-Af Amer) 55 (> 60) L 08/11/17 05:15 Glucose 193 mg/dL (70-105) H 08/11/17 05:15 POC Glucose 193 mg/dL (70-99) H 08/12/17 07:23 Hemoglobin A1c 7.5 % (-5.6) H 08/10/17 08:14 Troponin I 0.05 ng/mL (< 0.04) H* 08/11/17 11:04 Globulin 3.7 g/dL (2.4-3.5) H 08/11/17 05:15 Albumin/Globulin Ratio 0.9 (1.1-2.2) L 08/11/17 05:15 HDL Cholesterol 33 mg/dL (40-59) L 08/11/17 05:15 Urine Protein 30 mg/dL (Neg-Trace) H 08/10/17 10:33 Urine Ketones Trace mg/dL (Negative) H 08/10/17 10:33 Urine Blood Trace-lysed (Negative) H 08/10/17 10:33 Ur Leukocyte Esterase Large (Negative) H 08/10/17 10:33 Urine Microscopic WBC 3-5 per hpf (0-3) H 08/10/17 10:33 Urine Bacteria Many per hpf (None-Few) H 08/10/17 10:33 Ur Culture Indicated? YES (NO) A 08/10/17 10:33 Ethyl Alcohol 10 mg/dL (Less than 10) H 08/10/17 08:14 - Diagnostic Findings Additional findings: MRI OF THE BRAIN WITHOUT CONTRAST AND MRA HEAD WITHOUT CONTRAST 08/11/2017 5:34 pm TECHNIQUE: Multiplanar multisequence MRI of the brain was performed without the administration of intravenous contrast. MRA of the head was performed utilizing [id number] imaging with MIP images. No intravenous contrast was administered. COMPARISON: None. HISTORY: ORDERING SYSTEM PROVIDED HISTORY: difficulty finding words.; ORDERING SYSTEM PROVIDED HISTORY: difficulty findings words FINDINGS: MRI BRAIN: INTRACRANIAL STRUCTURES/VENTRICLES: There is no acute infarct. There is volume loss with mild chronic white matter microvascular ischemic disease characterized by foci of periventricular and subcortical white matter signal abnormality. No acute intracranial mass, shift, or bleed is identified. ORBITS: The visualized portion of the orbits demonstrate no acute abnormality. SINUSES: There is mucosal thickening of the paranasal sinuses with several opacified left ethmoid air cells. There is also an opacified left maxillary antrum with slight sinus expansion which could represent a mucocele. BONES/SOFT TISSUES: The bone marrow signal intensity appears normal. The soft tissues demonstrate no acute abnormality. MRA HEAD AND NECK: ANTERIOR CIRCULATION: The internal carotid arteries are normal in course and caliber without focal stenosis. The anterior cerebral and middle cerebral arteries demonstrate no focal stenosis. There is a left-sided posterior communicating artery. POSTERIOR CIRCULATION: The posterior cerebral arteries demonstrate no focal stenosis. The vertebral and basilar arteries appear unremarkable. ANEURYSM: No intracranial aneurysm is seen. CTA NECK: The right vertebral artery is dominant. The left vertebral artery appears to end as a posterior inferior cerebellar artery. There appears to be a severe stenosis at the origin of the right cervical ICA but this may be related to motion artifact. MR/MR head/brain wo con IMPRESSION: No acute infarct. 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 Recommend CTA or ultrasound of the neck for further evaluation. No flow limiting stenosis or branch occlusion detected within the head. D/ / Zheng Carranza MD / Zheng Carranza MD Interpreting Provider: Zheng Carranza MD The bilateral carotid arteries have minimal plaque throughout. Recommendations: After imaging the patient returned to their room. Preliminary noted in patient EMR. Findings Carotid Duplex: Right: There is nonstenotic plaque in the right proximal common carotid artery with a PSV of 55 cm/s and a EDV of 10 cm/s. There is irregular plaque. There is nonstenotic plaque in the right mid common carotid artery with a PSV of 82 cm/s and a EDV of 11 cm/s. There is irregular heterogeneous plaque. There is nonstenotic plaque in the right distal common carotid artery with a PSV of 81 cm/s and a EDV of 9 cm/s. There is irregular heterogeneous plaque. There is nonstenotic plaque in the right bifurcation with a PSV of 107 cm/s and a EDV of 11 cm/s. There is smooth, heterogeneous calcified plaque. The right proximal internal carotid artery has a PSV of 99 cm/s and a EDV of 16 cm/s. The right mid internal carotid artery has a PSV of 99 cm/s and a EDV of 18 cm/s. The right distal internal carotid artery has a PSV of 95 cm/s and a EDV of 22 cm/s. The right eca has a PSV of 171 cm/s and a EDV of 1 cm/s. The right vertebral artery has a PSV of 71 cm/s and a EDV of 14 cm/s. Left: There is nonstenotic plaque in the left proximal common carotid artery with a PSV of 133 cm/s and a EDV of 14 cm/s. There is irregular heterogeneous plaque. There is nonstenotic plaque in the left mid common carotid artery with a PSV of 104 cm/s and a EDV of 12 cm/s. There is smooth heterogeneous plaque. There is nonstenotic plaque in the left distal common carotid artery with a PSV of 108 cm/s and a EDV of 10 cm/s. There is smooth plaque. There is nonstenotic plaque in the left bifurcation with a PSV of 86 cm/s and a EDV of 12 cm/s. There is irregular heterogeneous plaque. The left proximal internal carotid artery has a PSV of 85 cm/s and a EDV of 17 cm/s. The left mid internal carotid artery has a PSV of 85 cm/s and a EDV of 19 cm/s. The left distal internal carotid artery has a PSV of 109 cm/s and a EDV of 24 cm/s. The left eca has a PSV of 106 cm/s and a EDV of 9 cm/s. The left vertebral artery has a PSV of 48 cm/s and a EDV of 8 cm/s. EV/EV echocardiogram Impressions: LVEF 55-60%. Normal LV chamber size, wall thickness and function. Mild left ventricular diastolic dysfunction. Normal right ventricular structure and function. Unable to estimate RVSP due to lack of TR jet. No significant valvular dysfunction. Negative agitated saline study for intra-cardiac shunting. Consult Discharge Plan - Plan Referrals: Jeffrey Caon DO [Primary Care Provider] -
--- NOTE | 2017-08-12 14:50 | Discharge Summary ---
- NOTES TO OUTPATIENT PROVIDER Notes to Outpatient Provider: PCP in 5 to 7 days Orders not resulted at time of discharge: Pending orders 08/11/17 04:00 Urinalysis reflex Microscopic [URIN] AM 0400 Ecoli sensitive to all antibiotic Date of Encounter: 08/12/17 Time of Encounter: 12:45 - Discharge Diagnosis (1) Acute cystitis with positive culture Priority: Primary Status: Acute Assessment and Plan: UA indicative of urinary tract infection. culture shows gram-negative rods and final showing Ecoli Was on Rocephin 1 g IV daily. Will DC on Levaquin for 5 days. (2) TIA (transient ischemic attack) Priority: Secondary Status: Acute Assessment and Plan: Ms. Main is a 82 year old female diabetes, HTN, hypothyroidism, anxiety, and HLD. Patient has been evaluated by neurology, I appreciate Dr. Marie's recommendations. Recommendations include continuing aspirin and statin therapy. images reviewed and TIA/CVA workup negative. MRI of brain showed no evidence of stroke. MRA of brain and neck showed questionable right vertebral artery stenosis and other than that no significant flow limiting major branch artery stenosis carotid artery duplex returned unremarkable. Echo normal with EF 55-60% She is back to normal and wants to go home. Neurology sates okay for pt to go home. Qualifiers: Transient cerebral ischemia type: unspecified Qualified Code(s): G45.9 - Transient cerebral ischemic attack, unspecified (3) HTN (hypertension) Priority: Secondary Status: Chronic Assessment and Plan: Resume home medication and f/u out pt with PCP. Qualifiers: Hypertension type: essential hypertension Qualified Code(s): I10 - Essential (primary) hypertension (4) HLD (hyperlipidemia) Priority: Secondary Status: Acute Assessment and Plan: Lipid panel within normal limits. Continue home medications. Qualifiers: Hyperlipidemia type: unspecified Qualified Code(s): E78.5 - Hyperlipidemia , unspecified (5) Diabetes type 2, controlled Priority: Secondary Status: Acute Assessment and Plan: Pt's states they where made aware by nurse that her glucose had been elevated. GLipizide increased to 10 mg BID from 5 mg BID. Pt has been instructed to follow up out pt with her PCP for further monitoring and medication dose adjustments. Qualifiers: Diabetes mellitus terminal worker insulin use: without terminal worker use Diabetes mellitus complication status: with unspecified complications Qualified Code(s) : E11.8 - Type 2 diabetes mellitus with unspecified complications (6) Anxiety and depression Priority: Secondary Status: Acute Assessment and Plan: Patient reported that she has been feeling better since she has not been taking her home dose of antidepressant. Duloxetine has not been continued here. Patient sates she no longer wants to take it or any other medication at this time. She states she is doing fine. Patient will need to follow-up with primary care for change in medications. Hospital course: Ms. Main is a 82 year old female with past medical history of anxiety/depression , DM-II, HTN, and HLD. Brief from Hx 08/10/2017 Pt states 3 nights ago she was having a bad sinus CHAVARRIA. She states last night around 8pm she was confused and talking strange. Her who was at bedside during evaluation state pt was having difficulty finding her words. Pt also states she has noticed some jerky movements in her hands. She states her jerky movements resolved since she stopped taking Duloxetine on Fri. Both pt and states they have both been under a lot of stress. They have 2 children and their son was diagnosed with a rare disorder called MSA. He been battling the condition for 8 years now. Pt states things are nearing the end. Discharge discussed with: patient, family Time spent discussing smoking cessation with patient: 3 to 10 minutes - Time Spent with Patient Total time spent providing and/or coordinating discharge services: Greater than 30 minutes - Discharge Medications Home Medications: Acetaminophen [Tylenol] 1,000 mg PO TID PRN 08/10/17 [History] Aspirin [Lo-Dose Aspirin EC] 81 mg PO DAILY 08/10/17 [History] Cholecalciferol (D-3) [Vitamin D] 2,000 unit PO DAILY 08/10/17 [History] Doxazosin Mesylate [Cardura] 2 mg PO HS 08/10/17 [History] Gabapentin [Neurontin] 400 mg PO BID 08/10/17 [History] Gabapentin [Neurontin] 800 mg PO HS 08/10/17 [History] Levothyroxine [Synthroid] 50 mcg PO 0630 08/10/17 [History] Lovastatin [Lovastatin] 40 mg PO HS 08/10/17 [History] Metoprolol [Lopressor] 50 mg PO BID 08/10/17 [History] Multivit-Min/FA/Lycopen/Lutein [Centrum Silver Tablet] 1 tab PO DAILY 08/10/17 [ History] Sitagliptin Phosphate [Januvia] 50 mg PO DAILY 08/10/17 [History] Valsartan [Valsartan] 320 mg PO DAILY 08/10/17 [History] hydroCHLOROthiazide [Hydrochlorothiazide] 25 mg PO DAILY 08/10/17 [History] Levofloxacin [Levaquin] 250 mg PO DAILY 7 Days #7 tablet 08/12/17 [Rx] glipiZIDE [Glucotrol] 10 mg PO BID #30 tablet 08/12/17 [Rx] Allergies/Adverse Reactions: 3 Allergy/AdvReac Type Severity Reaction Status Date / Time Sulfa (Sulfonamide AdvReac See Verified 08/10/17 09:37 Antibiotics) Comments Date of admission: 08/10/17 12:25 Primary care physician: Jeffrey Cano, DO Consults: 08/10/17 14:17 Consult for Pharmacy Education [CONS] Stat Reason for Consult: TIA Call Completed: Yes Consult to Physical Therapy [CONS] Routine Comment: Evaluate, develop and implement POC Reason for Consult: TIA Does patient have active BEDREST order?: No Is patient medically & hemodynamically stable?: No Patient assessed for mobility or mobilized this visit?: No Consult to On Air Personality [CONS] Routine Reason for SW Consult: TIA - Constitutional Vitals: Temp Pulse Resp BP Pulse Ox 98 F 57 17 153/65 95 08/12/17 10:53 08/12/17 10:53 08/12/17 10:53 08/12/17 10:53 08/12/17 10:53 General appearance: Present: cooperative, A&O X 3, morbidly obese, pleasant, no acute distress, answers questions appropriately - Head Head exam: Present: atraumatic, normocephalic - Eye Eye exam: Present: PERRL, conjuntiva pink, sclera anicteric Pupils: Present: PERRL - Neck Neck exam general surgery: Present: supple, trachea midline. Absent: lymphadenopathy - Respiratory Respiratory exam: Present: CTAB. Absent: accessory muscle use, rales, rhonchi, wheezes - Cardiovascular Cardiovascular exam: Present: RRR, +S1, +S2. Absent: diastolic murmur, gallop, rubs, systolic murmur - GI/Abdominal GI/Abdominal exam: Present: normal bowel sounds, soft, no peritoneal signs. Absent: distended, tenderness - Extremities Exam Extremities exam: Present: warm, radial pulses palpable and symmetrical. Absent : calf tenderness, cyanotic, pedal edema - Neurological Exam Neurological exam: Present: CN II-XII intact, oriented X3, no focal deficits. Absent: pronater drift, facial droop, speech deficit - Skin Skin exam: Present: dry, intact - Patient Status Disposition: Home, Self-Care Condition: Good Overall status at discharge: patient is back to baseline - Discharge Instructions Follow Up With: Jeffrey Cano DO [Primary Care Provider] - - Diet and Activity Activity: increase activity as tolerated Diet: advance to your usual diet - VTE Documentation of Mechanical Device: Intermittent pneumatic compression device
== END 2017-08-12 15:37 | disposition home or self-care (01) ==
LOC: EMEROO 07:44 → 3BNU 07:44
PROVIDERS: ADMIT Internal Medicine; ATTEND Family Medicine

== ENCOUNTER 2017-11-10 12:29 | Observation (INO) ==
--- NOTE | 2017-11-10 12:55 | Emergency Department Note ---
Disposition Clinical Impression: Uncontrolled hypertension, Hypertensive urgency, Elevated troponin I level Disposition: Admitted As Inpatient Condition: Fair Time of Disposition: 14:54 General Adult HPI - General Chief complaint: ED Altered Mental Status Stated complaint: AMS x3 months Time Seen by Provider: 11/10/17 12:32 Source: patient Limitations: no limitations Nursing Notes Reviewed: Yes Vital Signs Reviewed: Yes - History of Present Illness HPI Narrative: Patient is an 82-year-old female who presents to [facility] ED with a chief complaint of word finding difficulties for the last 3-4 months. Patient states that she has noticed it is been hard for her to get out the words that she wants to say. Denies any chest pain, difficulty breathing, abdominal pain, problems with urination or bowel movements. States she is being treated for hypertension by her primary care physician who recently started her on losartan 3 weeks ago. She has not yet had a follow-up appointment. Denies any headache, lightheadedness, visual changes, weakness in the extremities, slurred speech or facial droop. Onset (ago): month(s) (3) Pain Scale: 0 Consistency: constant Improves with: nothing Worsens with: nothing Associated symptoms: Reports: denies other symptoms. Denies: chest pain, cough , fever/chills, nausea/vomiting, shortness of breath, weakness Treatments Prior to Arrival: none - Related Data Home Medications Medication Instructions Recorded Confirmed Acetaminophen [Tylenol] 1,000 mg PO TID PRN 08/10/17 11/10/17 Aspirin [Lo-Dose Aspirin EC] 81 mg PO DAILY 08/10/17 11/10/17 Cholecalciferol (D-3) [Vitamin D] 2,000 unit PO DAILY 08/10/17 11/10/17 Gabapentin [Neurontin] 400 mg PO BID 08/10/17 11/10/17 Gabapentin [Neurontin] 800 mg PO HS 08/10/17 11/10/17 Levothyroxine [Synthroid] [place] [address]/10/17 11/10/17 Lovastatin 40 mg PO HS 08/10/17 11/10/17 Metoprolol [Lopressor] 50 mg PO BID 08/10/17 11/10/17 Multivit-Min/FA/Lycopen/Lutein 1 tab PO DAILY 08/10/17 11/10/17 [Centrum Silver Tablet] Sitagliptin Phosphate [Januvia] 50 mg PO DAILY 08/10/17 11/10/17 hydroCHLOROthiazide 25 mg PO DAILY 08/10/17 11/10/17 [Hydrochlorothiazide] Doxazosin [Cardura] 4 mg PO HS 11/10/17 11/10/17 Losartan/Hydrochlorothiazide 1 tab PO DAILY 11/10/17 11/10/17 [Losartan-Hctz 100-25 mg Tab] Previous Rx's Medication Instructions Recorded glipiZIDE [Glucotrol] 10 mg PO BID #30 tablet 08/12/17 Allergies Allergy/AdvReac Type Severity Reaction Status Date / Time Sulfa (Sulfonamide AdvReac See Verified 08/10/17 09:37 Antibiotics) Comments All systems ED: reviewed and negative except as stated. Past Medical History - Past Medical History Attestation: Yes The following information was validated with the patient. Source: patient Medical history: Reports: arthritis, diabetes, hyperlipidemia, hypertension Surgical history: Reports: hysterectomy Psychiatric history: Reports: anxiety, depression - Social History Smoking Status: Former smoker Smokeless Tobacco Status: No Alcohol use: Reports: none Drug use: Reports: none Physical Exam - General Limitations: no limitations General appearance: alert, in no apparent distress - Head Head exam: atraumatic, normocephalic - Eye Eye exam: Present: normal appearance, PERRL, EOMI - ENT ENT exam: normal exam, normal oropharynx, mucous membranes moist - Neck Neck exam: Present: normal inspection, full ROM, trachea midline - Chest Chest inspection: Present: normal inspection, symmetric chest wall rise - Respiratory Respiratory exam: Present: normal lung sounds bilaterally - Cardiovascular Cardiovascular exam: Present: regular rate, normal rhythm, normal heart sounds - Abdominal Exam Abdominal exam: Present: soft, Non-Tender. Absent: tenderness, distention, guarding, rebound, rigidity - Extremities Exam Extremities exam: Present: normal inspection, full ROM. Absent: tenderness, pedal edema - Back Exam Back exam: Present: normal inspection, full ROM. Absent: tenderness - Neurological Exam Neurological exam: Present: alert, oriented X3 - Psychiatric Psychiatric exam: Present: normal affect, normal mood - Skin Skin exam: Present: warm, dry, intact, normal color Course Course Narrative: Patient seen and examined. Patient with word finding difficulties over the last several months. Upon my examination, her neuro exam is unremarkable besides some word finding difficulties. She is able to converse normally but stumbles when trying to think of certain words. She knows her name and location but is unable to tell me the year. She does know that the month is November. Her NIH score is 1. Basic lab work, CT of the head ordered. Patient states no matter what, she refuses to do an MRI of the head. She is hypertensive with a systolic in the 200s. We will workup for hypertensive urgency. - Reevaluation(s) Reevaluation #1: Labwork showed a mildly elevated troponin of 0.04. This was also previously elevated at 0.05. Since her blood pressures in the 200s and she has been having issues with her word finding, will admit as hypertensive urgency. I discussed this with the patient and the family and they are in agreement. We will order 0.1 mg of clonidine as well as and reassess. I discussed with the hospitalist who has accepted patient for admission. Time: 16:55 Vital Signs Temperature 99.1 F 11/10/17 12:30 Pulse Rate 80 11/10/17 12:30 Respiratory Rate 18 11/10/17 12:30 Blood Pressure 226/95 11/10/17 12:30 O2 Sat by Pulse Oximetry 98 11/10/17 12:30 Temperature 99.1 F 11/10/17 12:30 Pulse Rate 68 11/10/17 16:24 Respiratory Rate 16 11/10/17 15:07 Blood Pressure 202/74 11/10/17 16:44 O2 Sat by Pulse Oximetry 96 11/10/17 16:24 Oxygen Delivery Oxygen Delivery Room Air Medical Decision Making - Medical Records Medical records reviewed: Yes I reviewed the patient's medical records. - Lab Data Lab results reviewed: Yes I reviewed the patient's lab results. Result diagrams: 11/10/17 13:00 11/10/17 13:00 Lab Results 11/10/17 11/10/17 11/10/17 Range/Units 13:00 13:00 13:00 WBC 7.9 (4.3-11.1) K/mcL RBC 4.58 (3.82-4.97) M/mcL Hgb 13.8 (11.5-15.4) g/dL Hct 41.1 (35.3-44.9) % MCV 89.7 (83.0-100.0) fL MCH 30.1 (28.0-33.3) pg MCHC 33.6 (31.6-35.5) g/dL RDW 12.6 (11.5-14.5) % Plt Count 258 (140-400) K/mcL MPV 8.9 L (9.4-12.4) fL Immature Gran % 0.3 (0-4) % Seg Neutrophils % 59.3 % Lymphocytes % 28.2 % Monocytes % 9.4 % Eosinophils % 2.0 % Basophils % 0.8 % Neutrophils # 4.7 (1.6-8.9) K/mcL Lymphocytes # 2.2 (0.6-4.6) K/mcL Monocytes # 0.7 (0.0-1.3) K/mcL Eosinophils # 0.2 (0.0-0.6) K/mcL Basophils # 0.1 (0.0-0.2) K/mcL PT 12.2 H (9.4-12.1) Seconds INR 1.1 APTT 33.2 (26.0-36.0) Seconds Sodium 137 (136-145) mEq/L Potassium 4.5 (3.5-5.1) mEq/L Chloride 98 (98-107) mEq/L Carbon Dioxide 28 (23-29) mEq/L BUN 25 H (8-23) mg/dL Creatinine 1.18 (0.60-1.20) mg/dL Est GFR ( Amer) 53 L (> 60) Est GFR (Non-Af Amer) 44 L (> 60) BUN/Creatinine Ratio 21 (6-26) Glucose 214 H (70-105) mg/dL Calculated Osmolality 295 (280-300) Calcium 11.0 H (8.6-10.3) mg/dL Troponin I 0.04 H* (< 0.04) ng/mL Urine Color (Yellow) Urine Clarity (Clear) Urine pH (5.0-8.0) pH Units Ur Specific [place] (1.010-1.025) Urine Protein (Neg-Trace) mg/dL Urine Glucose (UA) (Normal) mg/dL Urine Ketones (Negative) mg/dL Urine Blood (Negative) Urine Nitrite (Negative) Urine Bilirubin (Negative) Urine Urobilinogen (Normal) mg/dL Ur Leukocyte Esterase (Negative) Urine Microscopic RBC (0-3) per hpf Urine Microscopic WBC (0-3) per hpf Ur Squamous Epith Cells (None-Few) per lpf Urine Bacteria (None-Few) per hpf Hyaline Casts (None-Few) per lpf Urine Mucus (Few) Ur Culture Indicated? (NO) 11/10/17 Range/Units 13:46 WBC (4.3-11.1) K/mcL RBC (3.82-4.97) M/mcL Hgb (11.5-15.4) g/dL Hct (35.3-44.9) % MCV (83.0-100.0) fL MCH (28.0-33.3) pg MCHC (31.6-35.5) g/dL RDW (11.5-14.5) % Plt Count (140-400) K/mcL MPV (9.4-12.4) fL Immature Gran % (0-4) % Seg Neutrophils % % Lymphocytes % % Monocytes % % Eosinophils % % Basophils % % Neutrophils # (1.6-8.9) K/mcL Lymphocytes # (0.6-4.6) K/mcL Monocytes # (0.0-1.3) K/mcL Eosinophils # (0.0-0.6) K/mcL Basophils # (0.0-0.2) K/mcL PT (9.4-12.1) Seconds INR APTT (26.0-36.0) Seconds Sodium (136-145) mEq/L Potassium (3.5-5.1) mEq/L Chloride (98-107) mEq/L Carbon Dioxide (23-29) mEq/L BUN (8-23) mg/dL Creatinine (0.60-1.20) mg/dL Est GFR ( Amer) (> 60) Est GFR (Non-Af Amer) (> 60) BUN/Creatinine Ratio (6-26) Glucose (70-105) mg/dL Calculated Osmolality (280-300) Calcium (8.6-10.3) mg/dL Troponin I (< 0.04) ng/mL Urine Color Yellow (Yellow) Urine Clarity Clear (Clear) Urine pH 7.0 (5.0-8.0) pH Units Ur Specific [place] 1.016 (1.010-1.025) Urine Protein 100 H (Neg-Trace) mg/dL Urine Glucose (UA) Normal (Normal) mg/dL Urine Ketones Negative (Negative) mg/dL Urine Blood Small H (Negative) Urine Nitrite Negative (Negative) Urine Bilirubin Negative (Negative) Urine Urobilinogen Normal (Normal) mg/dL Ur Leukocyte Esterase Small H (Negative) Urine Microscopic RBC 0-3 (0-3) per hpf Urine Microscopic WBC 5-15 H (0-3) per hpf Ur Squamous Epith Cells Moderate H (None-Few) per lpf Urine Bacteria None Seen (None-Few) per hpf Hyaline Casts None Seen (None-Few) per lpf Urine Mucus Few (Few) Ur Culture Indicated? YES A (NO) - Radiology Data Radiology results reviewed: Yes I reviewed the patient's radiology results. Head CT 11/10/17 12:45 IMPRESSION: No acute intracranial abnormality. D/ / Jermaine Guajardo MD / Jermaine Guajardo MD Interpreting Provider: Jermaine Guajardo MD - EKG Data EKG #1 EKG attestation: Yes I reviewed and interpreted this EKG. EKG results narrative: EKG done at 1232 shows normal sinus rhythm with a rate of [address] elevation. Mild ST depression noted in leads V4 through V6. These appear unchanged from prior EKG done 08/11/2017.
[2017-11-10 13:22] LABS: Basophils # 0.1 K/mcL (0.0-0.2); Basophils % 0.8 %; Eosinophils # 0.2 K/mcL (0.0-0.6); Hematocrit 41.1 % (35.3-44.9); Hemoglobin 13.8 g/dL (11.5-15.4); Immature Granulocytes % 0.3 % (0-4); Lymphocytes # 2.2 K/mcL (0.6-4.6); Lymphocytes % 28.2 %; Mean Corpuscular HGB Conc 33.6 g/dL (31.6-35.5); Mean Corpuscular Hemoglobin 30.1 pg (28.0-33.3); Mean Corpuscular Volume 89.7 fL (83.0-100.0); Mean Platelet Volume 8.9 fL (9.4-12.4); Monocytes # 0.7 K/mcL (0.0-1.3); Monocytes % 9.4 %; Neutrophils # 4.7 K/mcL (1.6-8.9); Platelet Count 258 K/mcL (140-400); Red Blood Count 4.58 M/mcL (3.82-4.97); Red Cell Distribution Width 12.6 % (11.5-14.5); Segmented Neutrophils % 59.3 %
[2017-11-10 13:30] LABS: INR 1.1; Prothrombin Time 12.2 Seconds (9.4-12.1)
[2017-11-10 13:33] LABS: Activated Partial Thrombo Time 33.2 Seconds (26.0-36.0)
[2017-11-10 13:44] LABS: Troponin I 0.04 ng/mL (< 0.04)
[2017-11-10 13:45] LABS: Potassium 4.5 mEq/L (3.5-5.1)
[2017-11-10] MEDS ORDERED: *HR* Metoprolol 5 MG/5 ML VIAL IVP ONE (13:45)
[2017-11-10 14:06] LABS: Bilirubin,Urine Negative (Negative); Blood,Urine Small (Negative); Clarity,Urine Clear (Clear); Color,Urine Yellow (Yellow); Glucose,Urine (UA) Normal (Normal); Ketones,Urine Negative (Negative); Leukocyte Esterase,Urine Small (Negative); Nitrite,Urine Negative (Negative); Protein,Urine 100 mg/dL (Neg-Trace); Specific Gravity,Urine 1.016 (1.010-1.025); Urobilinogen,Urine Normal (Normal)
[2017-11-10 14:09] LABS: Bacteria,Urine None Seen per hpf (None-Few); Hyaline Casts,Urine None Seen per lpf (None-Few); Squamous Epithelial Cell,Urine Moderate per lpf (None-Few)
--- NOTE | 2017-11-10 14:28 | Emergency Department Note ---
Disposition Clinical Impression: Uncontrolled hypertension Disposition: Admitted As Inpatient Forms: ED Satisfaction Letter General Adult HPI - General Chief complaint: ED Altered Mental Status Stated complaint: AMS x3 months Time Seen by Provider: 11/10/17 12:32 Source: patient Limitations: no limitations - History of Present Illness Pain Scale: 0 Improves with: nothing Worsens with: nothing Associated symptoms: Reports: denies other symptoms. Denies: chest pain, cough , fever/chills, nausea/vomiting, shortness of breath, weakness Treatments Prior to Arrival: none - Related Data Home Medications Medication Instructions Recorded Confirmed Acetaminophen [Tylenol] 1,000 mg PO TID PRN 08/10/17 08/10/17 Aspirin [Lo-Dose Aspirin EC] 81 mg PO DAILY 08/10/17 08/10/17 Cholecalciferol (D-3) [Vitamin D] 2,000 unit PO DAILY 08/10/17 08/10/17 Doxazosin Mesylate [Cardura] 2 mg PO HS 08/10/17 08/10/17 Gabapentin [Neurontin] 400 mg PO BID 08/10/17 08/10/17 Gabapentin [Neurontin] 800 mg PO HS 08/10/17 08/10/17 Levothyroxine [Synthroid] 50 mcg PO 0630 08/10/17 08/10/17 Lovastatin 40 mg PO HS 08/10/17 08/10/17 Metoprolol [Lopressor] 50 mg PO BID 08/10/17 08/10/17 Multivit-Min/FA/Lycopen/Lutein 1 tab PO DAILY 08/10/17 08/10/17 [Centrum Silver Tablet] Sitagliptin Phosphate [Januvia] 50 mg PO DAILY 08/10/17 08/10/17 Valsartan 320 mg PO DAILY 08/10/17 08/10/17 hydroCHLOROthiazide 25 mg PO DAILY 08/10/17 08/10/17 [Hydrochlorothiazide] Previous Rx's Medication Instructions Recorded glipiZIDE [Glucotrol] 10 mg PO BID #30 tablet 08/12/17 levoFLOXacin [Levaquin] 250 mg PO DAILY 7 Days #7 tablet 08/12/17 Allergies Allergy/AdvReac Type Severity Reaction Status Date / Time Sulfa (Sulfonamide AdvReac See Verified 08/10/17 09:37 Antibiotics) Comments Past Medical History - Past Medical History Medical history: Reports: arthritis, diabetes, hyperlipidemia, hypertension Surgical history: Reports: hysterectomy Psychiatric history: Reports: anxiety, depression - Social History Smoking Status: Former smoker Smokeless Tobacco Status: No Alcohol use: Reports: none Drug use: Reports: none Physical Exam - General Limitations: no limitations General appearance: alert, in no apparent distress Course Vital Signs Temperature 99.1 F 11/10/17 12:30 Pulse Rate 80 11/10/17 12:30 Respiratory Rate 18 11/10/17 12:30 Blood Pressure 226/95 11/10/17 12:30 O2 Sat by Pulse Oximetry 98 11/10/17 12:30 Temperature 99.1 F 11/10/17 12:30 Pulse Rate 72 11/10/17 14:00 Respiratory Rate 18 11/10/17 14:00 Blood Pressure 216/73 11/10/17 14:00 O2 Sat by Pulse Oximetry 97 11/10/17 14:00 Oxygen Delivery Oxygen Delivery Room Air Medical Decision Making - Lab Data Result diagrams: 11/10/17 13:00 11/10/17 13:00 Lab Results 11/10/17 11/10/17 11/10/17 Range/Units 13:00 13:00 13:00 WBC 7.9 (4.3-11.1) K/mcL RBC 4.58 (3.82-4.97) M/mcL Hgb 13.8 (11.5-15.4) g/dL Hct 41.1 (35.3-44.9) % MCV 89.7 (83.0-100.0) fL MCH 30.1 (28.0-33.3) pg MCHC 33.6 (31.6-35.5) g/dL RDW 12.6 (11.5-14.5) % Plt Count 258 (140-400) K/mcL MPV 8.9 L (9.4-12.4) fL Immature Gran % 0.3 (0-4) % Seg Neutrophils % 59.3 % Lymphocytes % 28.2 % Monocytes % 9.4 % Eosinophils % 2.0 % Basophils % 0.8 % Neutrophils # 4.7 (1.6-8.9) K/mcL Lymphocytes # 2.2 (0.6-4.6) K/mcL Monocytes # 0.7 (0.0-1.3) K/mcL Eosinophils # 0.2 (0.0-0.6) K/mcL Basophils # 0.1 (0.0-0.2) K/mcL PT 12.2 H (9.4-12.1) Seconds INR 1.1 APTT 33.2 (26.0-36.0) Seconds Sodium 137 (136-145) mEq/L Potassium 4.5 (3.5-5.1) mEq/L Chloride 98 (98-107) mEq/L Carbon Dioxide 28 (23-29) mEq/L BUN 25 H (8-23) mg/dL Creatinine 1.18 (0.60-1.20) mg/dL Est GFR ( Amer) 53 L (> 60) Est GFR (Non-Af Amer) 44 L (> 60) BUN/Creatinine Ratio 21 (6-26) Glucose 214 H (70-105) mg/dL Calculated Osmolality 295 (280-300) Calcium 11.0 H (8.6-10.3) mg/dL Troponin I 0.04 H* (< 0.04) ng/mL Urine Color (Yellow) Urine Clarity (Clear) Urine pH (5.0-8.0) pH Units Ur Specific [employer] (1.010-1.025) Urine Protein (Neg-Trace) mg/dL Urine Glucose (UA) (Normal) mg/dL Urine Ketones (Negative) mg/dL Urine Blood (Negative) Urine Nitrite (Negative) Urine Bilirubin (Negative) Urine Urobilinogen (Normal) mg/dL Ur Leukocyte Esterase (Negative) 11/10/17 Range/Units 13:46 WBC (4.3-11.1) K/mcL RBC (3.82-4.97) M/mcL Hgb (11.5-15.4) g/dL Hct (35.3-44.9) % MCV (83.0-100.0) fL MCH (28.0-33.3) pg MCHC (31.6-35.5) g/dL RDW (11.5-14.5) % Plt Count (140-400) K/mcL MPV (9.4-12.4) fL Immature Gran % (0-4) % Seg Neutrophils % % Lymphocytes % % Monocytes % % Eosinophils % % Basophils % % Neutrophils # (1.6-8.9) K/mcL Lymphocytes # (0.6-4.6) K/mcL Monocytes # (0.0-1.3) K/mcL Eosinophils # (0.0-0.6) K/mcL Basophils # (0.0-0.2) K/mcL PT (9.4-12.1) Seconds INR APTT (26.0-36.0) Seconds Sodium (136-145) mEq/L Potassium (3.5-5.1) mEq/L Chloride (98-107) mEq/L Carbon Dioxide (23-29) mEq/L BUN (8-23) mg/dL Creatinine (0.60-1.20) mg/dL Est GFR ( Amer) (> 60) Est GFR (Non-Af Amer) (> 60) BUN/Creatinine Ratio (6-26) Glucose (70-105) mg/dL Calculated Osmolality (280-300) Calcium (8.6-10.3) mg/dL Troponin I (< 0.04) ng/mL Urine Color Yellow (Yellow) Urine Clarity Clear (Clear) Urine pH 7.0 (5.0-8.0) pH Units Ur Specific [employer] 1.016 (1.010-1.025) Urine Protein 100 H (Neg-Trace) mg/dL Urine Glucose (UA) Normal (Normal) mg/dL Urine Ketones Negative (Negative) mg/dL Urine Blood Small H (Negative) Urine Nitrite Negative (Negative) Urine Bilirubin Negative (Negative) Urine Urobilinogen Normal (Normal) mg/dL Ur Leukocyte Esterase Small H (Negative) Critical Care Time Critical Care Time: No Attestation Statement - Attestation Attestation: I examined this patient and my medical decision-making was reviewed with the Resident Physician. I agree with the documented findings, disposition and treatment plan as described except to the extent set forth below. 82-year-old female presented to the emergency room for concerns for hypertension. Blood pressure been running over 200 systolic. She states she normally runs in the 140 range. She has been following her blood pressure for years. She states she has not felt right recently over the past couple days secondary to this blood pressure. Currently, she denies any chest pain or vision changes or numbness. Her troponins at 0.04. CT head negative. Blood pressure control in the ER. Patient will be admitted for observation.
[2017-11-10 14:31] LABS: RBC,Urine 0-3 per hpf (0-3)
[2017-11-10 14:32] LABS: Mucus,Urine Few (Few)
[2017-11-10] MEDS ORDERED: cloNIDine HCl 0.1 MG TABLET PO ONE (14:53)
[2017-11-10] MEDS ORDERED: D5% in Water 1,000 ML IVC PRN (15:59)
[2017-11-10] MEDS ORDERED: Dextrose Gel 15 GM/37.5 ML TUBE PO PRN ×2 (15:59)
[2017-11-10] MEDS ORDERED: *HR* Dextrose 50 % in Water (Syg) 50 ML SYRINGE IVP PRN (15:59)
[2017-11-10] MEDS ORDERED: cefTRIAXone 1,000 MG in Water for inj. (sterile) 20 ML 10 ML IVP ONE (16:11)
[2017-11-10] MEDS ORDERED: Naloxone 0.4 MG/ML INJ IVP PRN (16:12)
--- NOTE | 2017-11-10 16:17 | Internal Med History&Physical ---
Date of Encounter: 11/10/17 Time of Encounter: 16:13 Internal Medicine - H&P: HPI Chief complaint: Difficulty finding words Admitted From: Home Plans for Post Hospital Care: Home History of present illness: Ms. Main is a 82 year old female with PMH of HTN, DM, HLD, who presented to the ER in company of her spouse and complaining of difficulty finding her words for the past 3 days as well as uncontrolled HTN She describes it as "not knowing the right words to speak", the patient herself says "its not that serious", but her spouse is concerned she has also become forgetful in the past 3 days They deny speech, motor, sensory, deficits, they deny headaches, fever, chills, no falls, no focal weakness. Her believes this is similar to her previous presentation in the last admission 08/2017 She denies CP/SOB/N/V/Diarrhea She does not have dysuria, and there is no change in urinary habits In the ER, blood pressure is uncontrolled and elevated, patient states this has been the case that her SBP has been around 180 even when she checked at home for the past 3 days Other work up in ER showed hyperalcemia , and a dirty UA, her troponin is 0.04 There was no EKG done in the ER The patient's blood pressure remained uncontrolled, and we will start her on Nicardipine infusion for blood pressure control. EKG in the ER with NSR and no ST segment changes, no changes from prior EKG. She refuses any MRI and does not want chest compressions and intubation Past Med Surg Social Fam HX - Past Medical History Medical history: arthritis, diabetes, hyperlipidemia, hypertension Psychiatric history: anxiety, depression - Past Surgical History Surgical History: hysterectomy Additional surgical history: gallbladder removed - Social History Smoking Status: Former smoker Smokeless Tobacco Status: No Alcohol use: none Drug use: none Internal Medicine - H&P: Meds Acetaminophen [Tylenol] 1,000 mg PO TID PRN 08/10/17 [History] Aspirin [Lo-Dose Aspirin EC] 81 mg PO DAILY 08/10/17 [History] Cholecalciferol (D-3) [Vitamin D] 2,000 unit PO DAILY 08/10/17 [History] Gabapentin [Neurontin] 400 mg PO BID 08/10/17 [History] Gabapentin [Neurontin] 800 mg PO HS 08/10/17 [History] Levothyroxine [Synthroid] 50 mcg PO 0630 08/10/17 [History] Lovastatin 40 mg PO HS 08/10/17 [History] Metoprolol [Lopressor] 50 mg PO BID 08/10/17 [History] Multivit-Min/FA/Lycopen/Lutein [Centrum Silver Tablet] 1 tab PO DAILY 08/10/17 [ History] Sitagliptin Phosphate [Januvia] 50 mg PO DAILY 08/10/17 [History] hydroCHLOROthiazide [Hydrochlorothiazide] 25 mg PO DAILY 08/10/17 [History] glipiZIDE [Glucotrol] 10 mg PO BID #30 tablet 08/12/17 [Rx] Doxazosin [Cardura] 4 mg PO HS 11/10/17 [History] Losartan/Hydrochlorothiazide [Losartan-Hctz 100-25 mg Tab] 1 tab PO DAILY [History] 3 Allergy/AdvReac Type Severity Reaction Status Date / Time Sulfa (Sulfonamide AdvReac See Verified 08/10/17 09:37 Antibiotics) Comments All Systems PM: A 10-system review of systems was performed and is negative for pertinent findings except as documented above in the HPI. - Constitutional Constitutional: no chills, no fever(s), no night sweats - EENT Eyes: no change in vision, no discharge, no pain, no photophobia Ears: no ear discharge, no ear pain, no tinnitus Nose, mouth and throat: no dysphagia, no nasal discharge, no neck pain, no sore throat - Cardiovascular Cardiovascular ROS IM: no chest pain, no diaphoresis, no dyspnea, no lightheadedness, no palpitations, no syncope - Respiratory Respiratory: no cough, no dyspnea, no wheezing, no excessive phlegm production - Gastrointestinal Gastrointestinal: no abdominal pain, no diarrhea, no hematemesis, no hematochezia, no melena, no nausea, no vomiting - Genitourinary Genitourinary: no change in urinary stream, no dysuria, no flank pain, no hematuria - Musculoskeletal Musculoskeletal ROS IM: no numbness, no tingling - Integumentary Integumentary IM: no rash, no unusual bruising - Neurological Neurological ROS: as per HPI, abnormal speech - Hematologic/Lymphatic Hematologic/Lymphatic: no easy bruising - Constitutional Vitals: Temp Pulse Resp BP Pulse Ox 99.1 F 70 16 204/68 97 11/10/17 12:30 11/10/17 15:07 11/10/17 15:07 11/10/17 15:07 11/10/17 15:07 General appearance: Present: A&O X 3, pleasant, no acute distress Exam: see detailed exam findings below - Head Head exam: Present: atraumatic, normocephalic - Eye Eye exam: Present: PERRL, conjuntiva pink, sclera anicteric Pupils: Present: PERRL - Neck Neck exam general surgery: Present: supple, trachea midline. Absent: lymphadenopathy - Respiratory Respiratory exam: Present: CTAB. Absent: accessory muscle use, rales, rhonchi, wheezes - Cardiovascular Cardiovascular exam: Present: RRR, +S1, +S2. Absent: diastolic murmur, gallop, rubs, systolic murmur - GI/Abdominal GI/Abdominal exam: Present: normal bowel sounds, soft, no peritoneal signs. Absent: distended, tenderness - Extremities Exam Extremities exam: Present: warm, radial pulses palpable and symmetrical. Absent : calf tenderness, cyanotic, pedal edema - Neurological Exam Neurological exam: Present: CN II-XII intact, oriented X3, no focal deficits. Absent: pronater drift, facial droop, speech deficit - Skin Skin exam: Present: dry, intact Internal Med - H&P Results - Labs CBC & Chem 7: 11/10/17 13:00 11/10/17 13:00 Labs: Short CBC 11/10/17 Range/Units 13:00 WBC 7.9 (4.3-11.1) K/mcL Hgb 13.8 (11.5-15.4) g/dL Hct 41.1 (35.3-44.9) % Plt Count 258 (140-400) K/mcL Neutrophils # 4.7 (1.6-8.9) K/mcL BMP 11/10/17 13:00 Sodium 137 Potassium 4.5 Chloride 98 Carbon Dioxide 28 BUN 25 H Creatinine 1.18 Glucose 214 H Calcium 11.0 H Cardiac Enzymes 11/10/17 Range/Units 13:00 Troponin I 0.04 H* (< 0.04) ng/mL Urine 11/10/17 Range/Units 13:46 Urine Color Yellow (Yellow) Urine Clarity Clear (Clear) Urine pH 7.0 (5.0-8.0) pH Units Ur Specific [place] 1.016 (1.010-1.025) Urine Protein 100 H (Neg-Trace) mg/dL Urine Glucose (UA) Normal (Normal) mg/dL - Impressions ITS Impressions Head CT 11/10/17 12:45 IMPRESSION: No acute intracranial abnormality. D/ / Jermaine Guajardo MD / Jermaine Guajardo MD Interpreting Provider: Jermaine Guajardo MD - Assessment and plan (1) Word finding difficulty Current Visit: Yes Status: Acute Assessment and plan: I do not personally believe the patient has any aphasia However, her reports she is more forgetful and has difficulty finding her words in the past 3 days She does not remember her home meds, and he states this is unusal for her This could be due to Uncontrolled HTN, CVA or development of dementia The patient reports it "comes and goes" Head CT unremarkable Patient absolutely refuses MRI Consider repeating head CT a.m if symptoms persists No neurologic deficits on exam (2) Hypertensive urgency Current Visit: Yes Status: Acute Assessment and plan: Blood pressure remains uncontrolled, despite ER administration of meds Will start patient on Nicardipine drip She reports not having used her medications at all today, will resume same She has chronically elevated troponin Will cycle, patient has no chest pain (3) UTI (urinary tract infection) Current Visit: Yes Status: Suspected Assessment and plan: suspected Start empirically on Ceftriaxone, patient has neurologic symptoms Follow urine culture Qualifiers: Urinary tract infection type: acute cystitis Hematuria presence: without hematuria Qualified Code(s): N30.00 - Acute cystitis without hematuria (4) Anxiety and depression Current Visit: Yes Status: Chronic Assessment and plan: continue home meds (5) DVT prophylaxis Current Visit: Yes Status: Acute Assessment and plan: SQ heparin (6) Diabetes type 2, controlled Current Visit: Yes Status: Chronic Assessment and plan: Insulin, FS ACHS ADA diet, continue to monitor Qualifiers: Diabetes mellitus half-way insulin use: with terminal supervisor use Diabetes mellitus complication status: without complication Qualified Code(s): E11.9 - Type 2 diabetes mellitus without complications; Z79.4 - intermodal dispatcher (current) use of insulin (7) HLD (hyperlipidemia) Current Visit: Yes Status: Chronic Assessment and plan: resume home meds Qualifiers: Hyperlipidemia type: unspecified Qualified Code(s): E78.5 - Hyperlipidemia , unspecified (8) HTN (hypertension) Current Visit: Yes Status: Chronic Assessment and plan: see hypertensive urgency for management Qualifiers: Hypertension type: essential hypertension Qualified Code(s): I10 - Essential (primary) hypertension (9) Hypercalcemia Current Visit: Yes Status: Acute Assessment and plan: Calcium 11 on Chem LFT ordered, to confirm any correction with albumin Consider gentle hydration if hypercalcemia is true Check PTH with a.m labs - Time Spent With Patient Total time spent is greater than 50% in coordination of care (as documented) at patient's floor/unit and/or counseling patient:
[2017-11-10] MEDS: niCARdipine 40 MG/200 ML MLS IVC SCH ×2 (17:05→23:53)
[2017-11-10] MEDS: Insulin LISPRO 300 UNITS/3 ML VIAL SQ SCH (18:04)
[2017-11-10] MEDS ORDERED: Insulin LISPRO 300 UNITS/3 ML VIAL SQ SCH (21:00)
[2017-11-10] MEDS ORDERED: Gabapentin 400 MG CAPSULE PO SCH ×4 (21:00)
[2017-11-10 21:13] LABS: Troponin I 0.06 ng/mL (< 0.04)
[2017-11-10 23:31] LABS: Albumin/Globulin Ratio 1.2 (1.1-2.2); Bilirubin,Direct 0.2 mg/dL (0.0-0.2); Bilirubin,Indirect 0.4 mg/dL (0.0-1.2); Bilirubin,Total 0.6 mg/dL (0.3-1.0); Globulin 3.4 g/dL (2.4-3.5); Total Protein 7.4 g/dL (6.4-8.9)
[2017-11-11] MEDS: Insulin LISPRO 300 UNITS/3 ML VIAL SQ SCH ×2 (08:36→11:22)
--- NOTE | 2017-11-11 08:57 | Electrocardiograph Report ---
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
[2017-11-11] MEDS ORDERED: Cholecalciferol (D-3) 1,000 UNIT TABLET PO SCH (09:00)
[2017-11-11] MEDS ORDERED: cefTRIAXone 1,000 MG in Water for inj. (sterile) 20 ML 10 ML IVP SCH (09:00)
[2017-11-11] MEDS ORDERED: Losartan/HCTZ 50-12.5 TABLET PO SCH (09:00)
[2017-11-11] MEDS ORDERED: Multivit/Ca/Min/Fe/FA 1 TAB TABLET PO SCH (09:00)
[2017-11-11] MEDS ORDERED: hydroCHLOROthiazide 25 MG TABLET PO SCH (09:00)
[2017-11-11] MEDS ORDERED: Aspirin Enteric Coated 81 MG Tablet PO SCH (09:00)
[2017-11-11] MEDS ORDERED: Gabapentin 400 MG CAPSULE PO SCH ×2 (09:00)
[2017-11-11 11:07] VITALS: BP 120/61
--- NOTE | 2017-11-11 11:35 | Discharge Summary ---
- NOTES TO OUTPATIENT PROVIDER Notes to Outpatient Provider: Patient to follow-up with primary care provider for hypertension management Date of Encounter: 11/11/17 Time of Encounter: 11:00 - Discharge Diagnosis (1) Word finding difficulty Priority: Primary Status: Acute (2) HTN (hypertension) Priority: Primary Status: Chronic Qualifiers: Hypertension type: essential hypertension Qualified Code(s): I10 - Essential (primary) hypertension (3) HLD (hyperlipidemia) Priority: Secondary Status: Chronic Qualifiers: Hyperlipidemia type: unspecified Qualified Code(s): E78.5 - Hyperlipidemia , unspecified (4) Diabetes type 2, controlled Priority: Secondary Status: Chronic Qualifiers: Diabetes mellitus 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 exterminator insulin use: with care home use Diabetes mellitus complication status: without complication Qualified Code(s): E11.9 - Type 2 diabetes mellitus without complications; Z79.4 - ad terminal makeup operator (current) use of insulin (5) Anxiety and depression Priority: Secondary Status: Chronic (6) Hypertensive urgency Priority: Primary Status: Acute (7) UTI (urinary tract infection) Priority: Primary Status: Suspected Qualifiers: Urinary tract infection type: acute cystitis Hematuria presence: without hematuria Qualified Code(s): N30.00 - Acute cystitis without hematuria (8) Hypercalcemia Priority: Secondary Status: Acute Hospital course: Patient is a 82-year-old female with past medical history significant for HTN, DM, HLD, who presented to the ER complaining of difficulty finding her words for the past 3 days as well as uncontrolled HTN. In the ER, blood pressure is uncontrolled and elevated, patient states this has been the case that her SBP has been around 180 even when she checked at home for the past 3 days. The patient's blood pressure remained uncontrolled, and was started on Nicardipine infusion for blood pressure control. During patients hospital stay her blood pressures were controlled and nicardipine drip was discontinued. She was also treated for suspected urinary tract infection. Patient had no further episodes of difficulty finding words and her CT of the head showed no acute findings. Patient will be discharged to follow-up with primary care provider for hypertension management. - Time Spent with Patient Total time spent providing and/or coordinating discharge services: Less than 30 minutes - Discharge Medications Prescriptions: Ciprofloxacin [Cipro] 500 mg PO BID 6 Days #12 tablet Home Medications: Acetaminophen [Tylenol] 1,000 mg PO TID PRN 08/10/17 [History] Aspirin [Lo-Dose Aspirin EC] 81 mg PO DAILY 08/10/17 [History] Cholecalciferol (D-3) [Vitamin D] 2,000 unit PO DAILY 08/10/17 [History] Gabapentin [Neurontin] 400 mg PO BID 08/10/17 [History] Gabapentin [Neurontin] 800 mg PO HS 08/10/17 [History] Levothyroxine [Synthroid] 50 mcg PO 0630 08/10/17 [History] Lovastatin 40 mg PO HS 08/10/17 [History] Metoprolol [Lopressor] 50 mg PO BID 08/10/17 [History] Multivit-Min/FA/Lycopen/Lutein [Centrum Silver Tablet] 1 tab PO DAILY 08/10/17 [ History] Sitagliptin Phosphate [Januvia] 50 mg PO DAILY 08/10/17 [History] hydroCHLOROthiazide [Hydrochlorothiazide] 25 mg PO DAILY 08/10/17 [History] glipiZIDE [Glucotrol] 10 mg PO BID #30 tablet 08/12/17 [Rx] Doxazosin [Cardura] 4 mg PO HS 11/10/17 [History] Losartan/Hydrochlorothiazide [Losartan-Hctz 100-25 mg Tab] 1 tab PO DAILY [History] Ciprofloxacin [Cipro] 500 mg PO BID 6 Days #12 tablet 11/11/17 [Rx] Allergies/Adverse Reactions: 3 Allergy/AdvReac Type Severity Reaction Status Date / Time Sulfa (Sulfonamide AdvReac See Verified 08/10/17 09:37 Antibiotics) Comments Date of admission: 11/10/17 16:39 Primary care physician: Jeffrey Cano, DO - Constitutional Vitals: Temp Pulse Resp BP Pulse Ox 98.2 F 62 18 120/61 96 11/11/17 11:02 11/11/17 11:02 11/11/17 11:02 11/11/17 11:02 11/11/17 11:02 General appearance: Present: A&O X 3, pleasant, no acute distress Exam: Gen.: Nonacute distress, alert and oriented 3 ENT: Mucosal membranes moist Cardiovascular: Normal S1 and S2 regular rate rhythm no murmurs rubs or gallops Skin: Normal color - Patient Status Disposition: Home, Self-Care Condition: Fair - Discharge Instructions Instructions: Ciprofloxacin (By mouth), Chronic Hypertension (DC) Follow Up With: Jeffrey Cano DO [Primary Care Provider] - 11/20/17 11:00 am ()
[2017-11-11] MEDS ORDERED: Gabapentin 300 MG CAPSULE PO SCH (16:00)
== END 2017-11-11 12:54 | disposition home or self-care (01) ==
LOC: EMEROOARM 12:29 → 3BNU 12:29 → SUATTDRO 16:39 → 2NNU 17:03
PROVIDERS: ADMIT Internal Medicine; ATTEND Hospitalist

== ENCOUNTER 2019-05-11 21:32 | Observation (INO) ==
[2019-05-11] MEDS ORDERED: 0.9 % Sodium Chloride 250 ML IVC ONE (21:41)
[2019-05-11 22:10] LABS: Bilirubin,Urine Negative (Negative); Blood,Urine Small (Negative); Clarity,Urine Clear (Clear); Color,Urine Yellow (Yellow); Glucose,Urine (UA) Normal (Normal); Ketones,Urine Negative (Negative); Leukocyte Esterase,Urine Small (Negative); Nitrite,Urine Negative (Negative); Protein,Urine >=300 mg/dL (Neg-Trace); Urobilinogen,Urine Normal (Normal)
[2019-05-11] MEDS: DilTIAZem 50 MG in 0.9 % Sodium Chloride 40 ML IVC SCH (22:15)
[2019-05-11 22:16] LABS: Bacteria,Urine None Seen per hpf (None-Few); Hyaline Casts,Urine None Seen per lpf (None-Few); Squamous Epithelial Cell,Urine Many per lpf (None-Few); WBC,Urine 50-100 per hpf (0-3)
[2019-05-11 22:44] LABS: Basophils % 0.5 %; Eosinophils # 0.1 K/mcL (0.0-0.6); Eosinophils % 1.5 %; Hematocrit 38.3 % (35.3-44.9); Hemoglobin 12.3 g/dL (11.5-15.4); Immature Granulocytes % 0.5 % (0-4); Lymphocytes # 1.6 K/mcL (0.6-4.6); Lymphocytes % 27.7 %; Mean Corpuscular HGB Conc 32.1 g/dL (31.6-35.5); Mean Corpuscular Hemoglobin 28.9 pg (28.0-33.3); Mean Corpuscular Volume 89.9 fL (83.0-100.0); Mean Platelet Volume 8.3 fL (9.4-12.4); Monocytes # 0.9 K/mcL (0.0-1.3); Monocytes % 15.1 %; Neutrophils # 3.2 K/mcL (1.6-8.9); Platelet Count 306 K/mcL (140-400); Red Blood Count 4.26 M/mcL (3.82-4.97); Red Cell Distribution Width 12.8 % (11.5-14.5); Segmented Neutrophils % 54.7 %; White Blood Count 5.9 K/mcL (4.3-11.1)
[2019-05-11 22:51] LABS: INR 1.1
[2019-05-11 22:54] LABS: Activated Partial Thrombo Time 26.9 Seconds (26.0-36.0)
[2019-05-11 23:05] LABS: Albumin 3.7 g/dL (3.5-5.7); Albumin/Globulin Ratio 1.1 (1.1-2.2); Bilirubin,Total 0.5 mg/dL (0.3-1.0); Calcium 9.4 mg/dL (8.6-10.3); Globulin 3.5 g/dL (2.4-3.5); Potassium 3.3 mEq/L (3.5-5.1); Total Protein 7.2 g/dL (6.4-8.9)
[2019-05-11 23:07] LABS: Troponin I 0.03 ng/mL (< 0.04)
[2019-05-12] MEDS ORDERED: Potassium Chloride Elixir 20 MEQ/15 ML UDC PO ONE (00:56)
[2019-05-12] MEDS ORDERED: cefTRIAXone 1,000 MG in Water for inj. (sterile) 10 ML IVP ONE (00:56)
[2019-05-12] MEDS ORDERED: *HR* Labetalol 20 MG/4 ML SYRINGE IVP PRN (00:56)
[2019-05-12] MEDS ORDERED: Naloxone 0.4 MG/ML INJ IVP PRN (00:56)
[2019-05-12] MEDS ORDERED: cefTRIAXone 2,000 MG in Water for inj. (sterile) 20 ML IVP SCH (01:00)
[2019-05-12 01:58] LABS: Basophils # 0.1 K/mcL (0.0-0.2); Basophils % 0.7 %; Eosinophils # 0.1 K/mcL (0.0-0.6); Eosinophils % 1.2 %; Hematocrit 38.4 % (35.3-44.9); Hemoglobin 12.9 g/dL (11.5-15.4); Immature Granulocytes % 0.3 % (0-4); Lymphocytes # 1.6 K/mcL (0.6-4.6); Lymphocytes % 23.8 %; Mean Corpuscular HGB Conc 33.6 g/dL (31.6-35.5); Mean Corpuscular Hemoglobin 29.9 pg (28.0-33.3); Mean Corpuscular Volume 88.9 fL (83.0-100.0); Mean Platelet Volume 8.2 fL (9.4-12.4); Monocytes % 14.8 %; Platelet Count 318 K/mcL (140-400); Red Blood Count 4.32 M/mcL (3.82-4.97); Red Cell Distribution Width 12.9 % (11.5-14.5); Segmented Neutrophils % 59.2 %; White Blood Count 6.8 K/mcL (4.3-11.1)
[2019-05-12 02:14] LABS: INR 1.1; Prothrombin Time 12.7 Seconds (9.4-12.1)
[2019-05-12] MEDS: DilTIAZem 50 MG in 0.9 % Sodium Chloride 40 ML IVC SCH ×2 (02:28→09:17)
[2019-05-12 02:38] LABS: Alanine Aminotransferase 17 Units/L (7-52); Albumin 3.9 g/dL (3.5-5.7); Albumin/Globulin Ratio 1.1 (1.1-2.2); Alkaline Phosphatase 70 Units/L (34-104); Aspartate Amino Transferase 37 Units/L (13-39); BUN/Creatinine Ratio 14 (6-26); Bilirubin,Total 0.5 mg/dL (0.3-1.0); Blood Urea Nitrogen 13 mg/dL (8-23); Calcium 9.4 mg/dL (8.6-10.3); Carbon Dioxide 21 mEq/L (23-29); Chloride 104 mEq/L (98-107); Chol/HDL Ratio 2.3 (0-4.9); Cholesterol 98 mg/dL (< 200); Globulin 3.7 g/dL (2.4-3.5); Glucose 178 mg/dL (70-105); HDL Cholesterol 43 mg/dL (40-59); LDL Cholesterol,Calculated 36 mg/dL (0-99); Osmolality,Calculated 283 (280-300); Phosphorous 2.7 mg/dL (2.7-4.5); Potassium 4.3 mEq/L (3.5-5.1); Sodium 134 mEq/L (136-145); Thyroid Stimulating Hormone 2.692 mcIU/mL (0.340-5.600); Total Protein 7.6 g/dL (6.4-8.9); Triglycerides 97 mg/dL (< 150); eGFR For African Americans > 60 (> 60); eGFR For Non-African Americans 57 (> 60)
[2019-05-12 02:56] LABS: Estimated Average Glucose 137 mg/dl
[2019-05-12] MEDS: *HR* Heparin 5,000 UNIT/ML VIAL SQ SCH ×3 (05:08→22:21)
[2019-05-12] MEDS ORDERED: cefTRIAXone 1,000 MG in Water for inj. (sterile) 10 ML IVP SCH (09:00)
[2019-05-12] MEDS ORDERED: Aspirin 81 MG TAB.CHEW PO SCH (09:00)
[2019-05-12] MEDS: Acetaminophen 325 MG TABLET PO PRN ×2 (13:44→20:43)
[2019-05-12] MEDS: Lactobacillus 1 EACH CAP.SPRINK PO SCH (22:19)
[2019-05-13] MEDS ORDERED: *HR* LORazepam 2 MG/ML VIAL IVP ONE (01:02)
[2019-05-13 05:20] LABS: Basophils % 0.6 %; Eosinophils # 0.2 K/mcL (0.0-0.6); Eosinophils % 2.5 %; Hemoglobin 11.9 g/dL (11.5-15.4); Immature Granulocytes % 0.3 % (0-4); Lymphocytes # 2.2 K/mcL (0.6-4.6); Lymphocytes % 34.4 %; Mean Corpuscular HGB Conc 33.1 g/dL (31.6-35.5); Mean Corpuscular Hemoglobin 29.6 pg (28.0-33.3); Mean Corpuscular Volume 89.6 fL (83.0-100.0); Mean Platelet Volume 8.4 fL (9.4-12.4); Monocytes # 0.9 K/mcL (0.0-1.3); Monocytes % 13.9 %; Platelet Count 313 K/mcL (140-400); Red Blood Count 4.02 M/mcL (3.82-4.97); Red Cell Distribution Width 12.9 % (11.5-14.5); Segmented Neutrophils % 48.3 %; White Blood Count 6.3 K/mcL (4.3-11.1)
[2019-05-13 05:28] LABS: Calcium 9.1 mg/dL (8.6-10.3); Potassium 3.5 mEq/L (3.5-5.1)
[2019-05-13 07:24] VITALS: BP 186/81
[2019-05-13] MEDS: Lactobacillus 1 EACH CAP.SPRINK PO SCH (07:54)
[2019-05-13] MEDS: Acetaminophen 325 MG TABLET PO PRN (08:01)
[2019-05-13] MEDS ORDERED: Aspirin Enteric Coated 81 MG Tablet PO SCH (09:00)
[2019-05-13] MEDS ORDERED: hydroCHLOROthiazide 25 MG TABLET PO SCH (10:15)
== END 2019-05-13 11:09 | disposition home or self-care (01) ==
LOC: EMEROOARM 21:32 → 2NNU 21:32 → SUATTDRO 05-12 00:35 → 2NNU 05-12 01:00 → 2ANU 05-12 17:41
PROVIDERS: ADMIT Student in an Organized Health Care Education/Training Program; ATTEND Internal Medicine

== ENCOUNTER 2020-02-06 04:52 | Observation (INO) ==
[2020-02-06] MEDS ORDERED: Ondansetron 4 MG/2 ML VIAL IVP ONE (05:01)
[2020-02-06] MEDS ORDERED: Ondansetron 4 MG/2 ML VIAL ONE (05:05)
[2020-02-06 05:34] LABS: Basophils # 0.1 K/mcL (0.0-0.2); Basophils % 0.5 %; Eosinophils # 0.2 K/mcL (0.0-0.6); Eosinophils % 1.4 %; Hematocrit 40.3 % (35.3-44.9); Hemoglobin 13.2 g/dL (11.5-15.4); INR 1.1; Immature Granulocytes % 0.4 % (0-4); Lymphocytes # 2.3 K/mcL (0.6-4.6); Lymphocytes % 16.3 %; Mean Corpuscular HGB Conc 32.8 g/dL (31.6-35.5); Mean Corpuscular Hemoglobin 29.3 pg (28.0-33.3); Mean Corpuscular Volume 89.4 fL (83.0-100.0); Mean Platelet Volume 8.5 fL (9.4-12.4); Monocytes # 1.1 K/mcL (0.0-1.3); Monocytes % 8.3 %; Neutrophils # 10.1 K/mcL (1.6-8.9); Platelet Count 349 K/mcL (140-400); Prothrombin Time 12.6 Seconds (9.4-12.1); Red Blood Count 4.51 M/mcL (3.82-4.97); Red Cell Distribution Width 12.8 % (11.5-14.5); Segmented Neutrophils % 73.1 %; White Blood Count 13.8 K/mcL (4.3-11.1)
[2020-02-06 05:39] LABS: Bilirubin,Urine Negative (Negative); Blood,Urine Small (Negative); Clarity,Urine Clear (Clear); Color,Urine Light-Yellow (Yellow); Glucose,Urine (UA) 200 mg/dL (Normal); Ketones,Urine Negative (Negative); Leukocyte Esterase,Urine Negative (Negative); Mucus,Urine Few per lpf (None-Few); Nitrite,Urine Negative (Negative); PH,Urine 7.5 pH Units (5.0-8.0); Protein,Urine >=600 mg/dL (Neg-Trace); Specific Gravity,Urine 1.014 (1.010-1.025); Squamous Epithelial Cell,Urine Few per hpf (None-Few); Urobilinogen,Urine Normal (Normal)
[2020-02-06 05:55] LABS: Troponin I 0.04 ng/mL (< 0.04)
[2020-02-06 05:56] LABS: Alanine Aminotransferase 17 Units/L (7-52); Alkaline Phosphatase 86 Units/L (34-104); Aspartate Amino Transferase 20 Units/L (13-39); BUN/Creatinine Ratio 28 (6-26); Bilirubin,Direct 0.2 mg/dL (0.0-0.2); Bilirubin,Indirect 0.8 mg/dL (0.0-1.0); Blood Urea Nitrogen 26 mg/dL (8-23); Calcium 10.1 mg/dL (8.6-10.3); Carbon Dioxide 26 mEq/L (23-29); Chloride 97 mEq/L (98-107); Globulin 3.9 g/dL (2.4-3.5); Glucose 257 mg/dL (70-105); Lipase 26 Units/L (11-82); Osmolality,Calculated 288 (280-300); Potassium 3.9 mEq/L (3.5-5.1); Sodium 132 mEq/L (136-145); Total Protein 7.9 g/dL (6.4-8.9); eGFR For African Americans > 60 (> 60); eGFR For Non-African Americans 57 (> 60)
[2020-02-06] MEDS ORDERED: Azithromycin 500 MG in 0.9 % Sodium Chloride 250 ML IVPB ONE (06:38)
[2020-02-06] MEDS ORDERED: MethylPREDNISolone 40 MG/ML VIAL IVP ONE ×2 (07:23→19:00)
[2020-02-06] MEDS ORDERED: Ondansetron 4 MG/2 ML VIAL IVP PRN (07:41)
[2020-02-06] MEDS ORDERED: Naloxone 0.4 MG/ML INJ IVP PRN (07:41)
[2020-02-06] MEDS ORDERED: *HR* Labetalol 20 MG/4 ML SYRINGE IVP ONE (07:49)
[2020-02-06] MEDS ORDERED: Aztreonam 500 MG in 0.9 % Sodium Chloride 50 ML IVPB SCH (08:00)
[2020-02-06] MEDS ORDERED: Isovue-370 500 ML BOTTLE IVP ONE (09:33)
[2020-02-06] MEDS ORDERED: Dextrose Gel 15 GM/37.5 ML TUBE PO PRN ×2 (09:49)
[2020-02-06] MEDS ORDERED: *HR* Dextrose 50 % in Water (Vial) 50 ML VIAL IVP PRN (09:49)
[2020-02-06] MEDS ORDERED: D5% in Water 1,000 ML IVC PRN (09:49)
[2020-02-06] MEDS: Insulin LISPRO 300 UNITS/3 ML VIAL SQ SCH ×2 (10:15→17:23)
[2020-02-06 10:56] LABS: Adenovirus Not Detected (Not Detect); Bordetella Pertussis Not Detected (Not Detect); Chlamydophila pneumoniae Not Detected (Not Detect); Coronavirus 229E Not Detected (Not Detect); Coronavirus HKU1 Not Detected (Not Detect); Coronavirus NL63 Not Detected (Not Detect); Coronavirus OC43 Not Detected (Not Detect); Human Metapneumovirus Not Detected (Not Detect); Human Rhinovirus/Enterovirus Not Detected (Not Detect); Influenza A Subtype 2009 H1 Not Detected (Not Detect); Influenza B Not Detected (Not Detect); Mycoplasma pneumoniae Not Detected (Not Detect); Parainfluenza Virus 1 Not Detected (Not Detect); Parainfluenza Virus 2 Not Detected (Not Detect); Parainfluenza Virus 3 Not Detected (Not Detect); Parainfluenza Virus 4 Not Detected (Not Detect); Respiratory Syncytial Virus Not Detected (Not Detect); SARS-CoV-2 Not Detected (Not Detect)
[2020-02-06] MEDS: levoFLOXacin 750 MG/150 ML 750 MG/150 ML BAG IVPB SCH (14:36)
[2020-02-06] MEDS: hydroCHLOROthiazide 25 MG TABLET PO SCH (14:36)
[2020-02-06] MEDS: *HR* Heparin 5,000 UNIT/ML VIAL SQ SCH (17:17)
[2020-02-06] MEDS ORDERED: Melatonin 3 MG TABLET PO ONE (22:45)
[2020-02-07] MEDS ORDERED: MethylPREDNISolone 40 MG/ML VIAL IVP ONE ×2 (01:00→07:00)
[2020-02-07 05:30] LABS: Basophils % 0.1 %; Hematocrit 40.4 % (35.3-44.9); Hemoglobin 13.3 g/dL (11.5-15.4); Immature Granulocytes % 1.2 % (0-4); Lymphocytes % 10.4 %; Mean Corpuscular HGB Conc 32.9 g/dL (31.6-35.5); Mean Corpuscular Hemoglobin 29.5 pg (28.0-33.3); Mean Corpuscular Volume 89.6 fL (83.0-100.0); Mean Platelet Volume 8.4 fL (9.4-12.4); Monocytes # 0.2 K/mcL (0.0-1.3); Monocytes % 1.8 %; Neutrophils # 8.1 K/mcL (1.6-8.9); Platelet Count 313 K/mcL (140-400); Red Blood Count 4.51 M/mcL (3.82-4.97); Red Cell Distribution Width 12.5 % (11.5-14.5); Segmented Neutrophils % 86.5 %; White Blood Count 9.4 K/mcL (4.3-11.1)
[2020-02-07] MEDS: *HR* Heparin 5,000 UNIT/ML VIAL SQ SCH (05:49)
[2020-02-07 05:51] LABS: BUN/Creatinine Ratio 29 (6-26); Blood Urea Nitrogen 29 mg/dL (8-23); Calcium 9.5 mg/dL (8.6-10.3); Carbon Dioxide 24 mEq/L (23-29); Chloride 94 mEq/L (98-107); Glucose 255 mg/dL (70-105); Osmolality,Calculated 285 (280-300); Potassium 3.8 mEq/L (3.5-5.1); Sodium 130 mEq/L (136-145); eGFR For African Americans > 60 (> 60); eGFR For Non-African Americans 53 (> 60)
[2020-02-07] MEDS: Insulin LISPRO 300 UNITS/3 ML VIAL SQ SCH ×2 (07:34→11:38)
[2020-02-07] MEDS: hydroCHLOROthiazide 25 MG TABLET PO SCH (07:38)
[2020-02-07] MEDS: levoFLOXacin 750 MG/150 ML 750 MG/150 ML BAG IVPB SCH (07:38)
[2020-02-07] MEDS ORDERED: levoFLOXacin 750 MG/150 ML 750 MG/150 ML BAG IVPB SCH (09:00)
[2020-02-07] MEDS ORDERED: Aspirin Enteric Coated 81 MG Tablet PO SCH (09:00)
[2020-02-07 13:15] VITALS: BP 159/72
[2020-02-07] MEDS: amLODIPine 5 MG TABLET PO SCH ×2 (13:23→13:32)
[2020-02-09] MEDS ORDERED: levoFLOXacin 750 MG/150 ML 750 MG/150 ML BAG IVPB SCH (09:00)
== END 2020-02-07 14:11 | disposition home or self-care (01) ==
LOC: 3BNU 04:52 → EMEROOARM 04:52 → SUATTDRO 08:01 → 3BNU 08:49
PROVIDERS: ADMIT Internal Medicine; ATTEND Internal Medicine

== ENCOUNTER 2020-10-04 10:49 | Inpatient (IN) ==
[2020-10-04 12:09] LABS: Basophils # 0.1 K/mcL (0.0-0.2); Basophils % 0.5 %; Eosinophils # 0.2 K/mcL (0.0-0.6); Eosinophils % 1.6 %; Hematocrit 34.1 % (35.3-44.9); Hemoglobin 11.3 g/dL (11.5-15.4); Immature Granulocytes % 0.8 % (0-4); Lymphocytes # 1.9 K/mcL (0.6-4.6); Lymphocytes % 19.9 %; Mean Corpuscular HGB Conc 33.1 g/dL (31.6-35.5); Mean Corpuscular Hemoglobin 29.8 pg (28.0-33.3); Mean Platelet Volume 9.2 fL (9.4-12.4); Monocytes # 0.7 K/mcL (0.0-1.3); Monocytes % 7.8 %; Neutrophils # 6.6 K/mcL (1.6-8.9); Platelet Count 354 K/mcL (140-400); Red Blood Count 3.79 M/mcL (3.82-4.97); Red Cell Distribution Width 13.2 % (11.5-14.5); Segmented Neutrophils % 69.4 %; White Blood Count 9.5 K/mcL (4.3-11.1)
[2020-10-04 12:24] LABS: Calcium 9.5 mg/dL (8.6-10.3); Magnesium 2.1 mg/dL (1.6-2.6); Potassium 4.7 mEq/L (3.5-5.1)
[2020-10-04 12:25] LABS: INR 1.1; Prothrombin Time 12.9 Seconds (9.4-12.1)
[2020-10-04 12:27] LABS: Troponin I 0.04 ng/mL (< 0.04)
[2020-10-04 12:27] LABS: Activated Partial Thrombo Time 27.3 Seconds (26.0-36.0)
[2020-10-04 12:41] LABS: Thyroid Stimulating Hormone 4.452 mcIU/mL (0.340-5.600)
[2020-10-04] MEDS ORDERED: Naloxone 0.4 MG/ML INJ IVP PRN (14:37)
[2020-10-04] MEDS ORDERED: *HR* Dextrose 50 % in Water (Vial) 50 ML VIAL IVP PRN (14:41)
[2020-10-04] MEDS ORDERED: Dextrose Gel 15 GM/37.5 ML TUBE PO PRN ×2 (14:41)
[2020-10-04] MEDS ORDERED: D5% in Water 1,000 ML IVC PRN (14:41)
[2020-10-04] MEDS ORDERED: Perflutren Lipid Microsphere 1.3 ML in 0.9 % Sodium Chloride 8.7 ML IVP PRN (14:42)
[2020-10-04] MEDS ORDERED: 0.9 % Sodium Chloride 500 ML IVC SCH (15:45)
[2020-10-04] MEDS ORDERED: Bupivacaine-MPF 0.25% 10 ML VIAL INFILT ONE (17:17)
[2020-10-04] MEDS: Insulin LISPRO 300 UNITS/3 ML VIAL SUBQ SCH (17:37)
[2020-10-04] MEDS ORDERED: *HR* Heparin 5,000 UNIT/ML VIAL SQ SCH (18:00)
[2020-10-05] MEDS ORDERED: *HR* Heparin 5,000 UNIT/ML VIAL IVP ONE (01:54)
[2020-10-05] MEDS ORDERED: *HR* Heparin 5,000 UNIT/ML VIAL IVP PRN ×2 (01:54)
[2020-10-05] MEDS ORDERED: Heparin 25,000UNIT/250ML 1/2NS 25,000 UNIT/250 ML IV.SOLN IVC SCH (02:00)
[2020-10-05 02:53] LABS: Hematocrit 31.6 % (35.3-44.9); Hemoglobin 10.9 g/dL (11.5-15.4); Mean Corpuscular HGB Conc 34.5 g/dL (31.6-35.5); Mean Corpuscular Hemoglobin 30.2 pg (28.0-33.3); Mean Corpuscular Volume 87.5 fL (83.0-100.0); Mean Platelet Volume 8.8 fL (9.4-12.4); Platelet Count 322 K/mcL (140-400); Red Blood Count 3.61 M/mcL (3.82-4.97); Red Cell Distribution Width 12.9 % (11.5-14.5); White Blood Count 10.9 K/mcL (4.3-11.1)
[2020-10-05 03:03] LABS: Heparin anti-factor XA UFH < 0.04 IU/mL (0.30-0.70)
[2020-10-05 03:04] LABS: INR 1.1; Prothrombin Time 13.1 Seconds (9.4-12.1)
[2020-10-05 03:06] LABS: Estimated Average Glucose 160 mg/dl; Hemoglobin A1C 7.2 %
[2020-10-05] MEDS: Acetaminophen 325 MG TABLET PO PRN (04:08)
[2020-10-05 05:58] LABS: Basophils # 0.1 K/mcL (0.0-0.2); Basophils % 0.6 %; Eosinophils # 0.1 K/mcL (0.0-0.6); Eosinophils % 1.1 %; Hematocrit 34.1 % (35.3-44.9); Hemoglobin 11.5 g/dL (11.5-15.4); Immature Granulocytes % 0.6 % (0-4); Lymphocytes # 2.3 K/mcL (0.6-4.6); Lymphocytes % 22.9 %; Mean Corpuscular HGB Conc 33.7 g/dL (31.6-35.5); Mean Platelet Volume 9.3 fL (9.4-12.4); Monocytes % 9.7 %; Neutrophils # 6.7 K/mcL (1.6-8.9); Platelet Count 329 K/mcL (140-400); Red Blood Count 3.83 M/mcL (3.82-4.97); Segmented Neutrophils % 65.1 %; White Blood Count 10.2 K/mcL (4.3-11.1)
[2020-10-05 06:29] LABS: Troponin I 0.27 ng/mL (< 0.04)
[2020-10-05 06:51] LABS: Calcium 9.2 mg/dL (8.6-10.3); Chol/HDL Ratio 2.6 (0-4.9); Potassium 4.5 mEq/L (3.5-5.1)
[2020-10-05] MEDS: Insulin LISPRO 300 UNITS/3 ML VIAL SUBQ SCH ×3 (07:35→18:46)
[2020-10-05] MEDS: Aspirin 81 MG TAB.CHEW PO SCH (08:01)
[2020-10-05] MEDS: hydroCHLOROthiazide 25 MG TABLET PO SCH (08:01)
[2020-10-05] MEDS: Valsartan 160 MG TABLET PO SCH (08:01)
[2020-10-05 08:17] LABS: Sodium, Urine 38.8 mEq/L
[2020-10-05] MEDS: Ondansetron 4 MG/2 ML VIAL IVP PRN (12:32)
[2020-10-05] MEDS ORDERED: 0.9 % Sodium Chloride 1,000 ML ONE (15:44)
[2020-10-05] MEDS ORDERED: *HR* FentaNYL (PF) 100 MCG/2 ML VIAL ONE ×2 (15:51→16:48)
[2020-10-05] MEDS ORDERED: *HR* Midazolam HCl 2 MG/2 ML VIAL ONE (15:51)
[2020-10-05] MEDS ORDERED: Clindamycin 600 MG/50 ML 1,200 MG/100 ML IV.SOLN IVPB ONE (16:08)
[2020-10-05] MEDS ORDERED: 0.9 % Sodium Chloride 500 ML ONE (16:10)
[2020-10-05] MEDS ORDERED: GlipiZIDE 5 MG TABLET PO SCH (17:00)
[2020-10-05] MEDS: *HR* HYDROcodone/Acet 5/325 mg TABLET PO PRN (19:03)
[2020-10-05 20:19] LABS: Bilirubin,Urine Negative (Negative); Blood,Urine Small (Negative); Clarity,Urine Turbid (Clear); Color,Urine Yellow (Yellow); Glucose,Urine (UA) Normal (Normal); Ketones,Urine 20 mg/dL (Negative); Leukocyte Esterase,Urine Large (Negative); Nitrite,Urine Negative (Negative); Protein,Urine 200 mg/dL (Neg-Trace); Urobilinogen,Urine Normal (Normal)
[2020-10-05 20:33] LABS: RBC,Urine 0-3 per hpf (0-3); WBC,Urine TNTC per hpf (0-3)
[2020-10-05] MEDS: Pregabalin 75 MG CAPSULE PO SCH (20:33)
[2020-10-05 20:34] LABS: Bacteria,Urine Many per hpf (None-Few); Hyaline Casts,Urine None Seen per lpf (None Seen); Squamous Epithelial Cell,Urine Few per hpf (None-Few)
[2020-10-06] MEDS: *HR* HYDROcodone/Acet 5/325 mg TABLET PO PRN ×2 (05:06→12:43)
[2020-10-06 06:35] LABS: Hematocrit 36.6 % (35.3-44.9); Hemoglobin 12.5 g/dL (11.5-15.4); Mean Corpuscular HGB Conc 34.2 g/dL (31.6-35.5); Mean Corpuscular Hemoglobin 30.7 pg (28.0-33.3); Mean Corpuscular Volume 89.9 fL (83.0-100.0); Mean Platelet Volume 9.1 fL (9.4-12.4); Platelet Count 355 K/mcL (140-400); Red Blood Count 4.07 M/mcL (3.82-4.97); Red Cell Distribution Width 13.4 % (11.5-14.5); White Blood Count 13.5 K/mcL (4.3-11.1)
[2020-10-06 07:23] LABS: Albumin 3.7 g/dL (3.5-5.7); Albumin/Globulin Ratio 1.1 (1.1-2.2); Bilirubin,Total 0.9 mg/dL (0.3-1.0); Calcium 9.1 mg/dL (8.6-10.3); Globulin 3.3 g/dL (2.4-3.5); Potassium 4.1 mEq/L (3.5-5.1); Troponin I 0.19 ng/mL (< 0.04)
[2020-10-06] MEDS: Valsartan 160 MG TABLET PO SCH (07:59)
[2020-10-06] MEDS: hydroCHLOROthiazide 25 MG TABLET PO SCH (07:59)
[2020-10-06] MEDS: Aspirin 81 MG TAB.CHEW PO SCH (07:59)
[2020-10-06] MEDS: Lactobacillus 1 EACH CAP.SPRINK PO SCH (07:59)
[2020-10-06] MEDS: Multivit/Ca/Min/Fe/FA 1 TAB TABLET PO SCH (07:59)
[2020-10-06] MEDS: Cholecalciferol (D-3) 1,000 UNIT (25MCG) TABLET PO SCH (08:00)
[2020-10-06] MEDS: Insulin LISPRO 300 UNITS/3 ML VIAL SUBQ SCH ×3 (08:04→16:55)
[2020-10-06] MEDS ORDERED: *HR* SitaGLIPtin 25 MG TABLET PO SCH (09:00)
[2020-10-06] MEDS: Pregabalin 75 MG CAPSULE PO SCH (19:35)
[2020-10-06] MEDS: Acetaminophen 325 MG TABLET PO PRN (19:42)
[2020-10-07 04:23] LABS: Hematocrit 32.9 % (35.3-44.9); Mean Corpuscular HGB Conc 33.4 g/dL (31.6-35.5); Mean Corpuscular Hemoglobin 30.1 pg (28.0-33.3); Mean Corpuscular Volume 90.1 fL (83.0-100.0); Mean Platelet Volume 8.8 fL (9.4-12.4); Platelet Count 283 K/mcL (140-400); Red Blood Count 3.65 M/mcL (3.82-4.97); Red Cell Distribution Width 13.3 % (11.5-14.5); White Blood Count 9.6 K/mcL (4.3-11.1)
[2020-10-07 04:45] LABS: Albumin 3.2 g/dL (3.5-5.7); Albumin/Globulin Ratio 1.1 (1.1-2.2); Bilirubin,Total 0.7 mg/dL (0.3-1.0); Calcium 8.8 mg/dL (8.6-10.3); Globulin 2.9 g/dL (2.4-3.5); Potassium 4.5 mEq/L (3.5-5.1); Total Protein 6.1 g/dL (6.4-8.9)
[2020-10-07 04:49] LABS: Troponin I 0.09 ng/mL (< 0.04)
[2020-10-07] MEDS: Multivit/Ca/Min/Fe/FA 1 TAB TABLET PO SCH (08:33)
[2020-10-07] MEDS: Lactobacillus 1 EACH CAP.SPRINK PO SCH (08:33)
[2020-10-07] MEDS: Aspirin 81 MG TAB.CHEW PO SCH (08:33)
[2020-10-07] MEDS: hydroCHLOROthiazide 25 MG TABLET PO SCH (08:33)
[2020-10-07] MEDS: Cholecalciferol (D-3) 1,000 UNIT (25MCG) TABLET PO SCH (08:33)
[2020-10-07] MEDS: Valsartan 160 MG TABLET PO SCH (08:34)
[2020-10-07] MEDS ORDERED: 0.9 % Sodium Chloride 1,000 ML IVC SCH (08:45)
[2020-10-07] MEDS: Insulin LISPRO 300 UNITS/3 ML VIAL SUBQ SCH ×3 (08:48→16:51)
[2020-10-07] MEDS: Ondansetron 4 MG/2 ML VIAL IVP PRN (10:07)
[2020-10-07] MEDS ORDERED: Ondansetron ODT 4 MG TAB.RAPDIS SL PRN (10:27)
[2020-10-07] MEDS: Acetaminophen 325 MG TABLET PO PRN (19:50)
[2020-10-07] MEDS: Pregabalin 75 MG CAPSULE PO SCH (19:50)
[2020-10-08 01:36] LABS: Basophils % 0.4 %; Eosinophils # 0.1 K/mcL (0.0-0.6); Eosinophils % 1.6 %; Hematocrit 29.3 % (35.3-44.9); Hemoglobin 9.7 g/dL (11.5-15.4); Immature Granulocytes % 0.6 % (0-4); Lymphocytes # 2.2 K/mcL (0.6-4.6); Lymphocytes % 24.7 %; Mean Corpuscular HGB Conc 33.1 g/dL (31.6-35.5); Mean Corpuscular Hemoglobin 29.9 pg (28.0-33.3); Mean Corpuscular Volume 90.4 fL (83.0-100.0); Mean Platelet Volume 9.1 fL (9.4-12.4); Monocytes # 1.1 K/mcL (0.0-1.3); Monocytes % 11.8 %; Neutrophils # 5.5 K/mcL (1.6-8.9); Platelet Count 254 K/mcL (140-400); Red Blood Count 3.24 M/mcL (3.82-4.97); Red Cell Distribution Width 13.4 % (11.5-14.5); Segmented Neutrophils % 60.9 %
[2020-10-08 01:56] LABS: Calcium 8.4 mg/dL (8.6-10.3); Potassium 4.4 mEq/L (3.5-5.1)
[2020-10-08] MEDS: Cholecalciferol (D-3) 1,000 UNIT (25MCG) TABLET PO SCH (09:17)
[2020-10-08] MEDS: Lactobacillus 1 EACH CAP.SPRINK PO SCH (09:17)
[2020-10-08] MEDS: Multivit/Ca/Min/Fe/FA 1 TAB TABLET PO SCH (09:17)
[2020-10-08] MEDS: Aspirin 81 MG TAB.CHEW PO SCH (09:17)
[2020-10-08] MEDS: Valsartan 160 MG TABLET PO SCH (09:18)
[2020-10-08] MEDS: Insulin LISPRO 300 UNITS/3 ML VIAL SUBQ SCH ×3 (09:18→19:45)
[2020-10-08] MEDS: amLODIPine 5 MG TABLET PO SCH (12:36)
[2020-10-08] MEDS: Pregabalin 75 MG CAPSULE PO SCH (19:57)
[2020-10-09 01:47] LABS: Basophils # 0.1 K/mcL (0.0-0.2); Basophils % 0.5 %; Eosinophils # 0.2 K/mcL (0.0-0.6); Eosinophils % 1.7 %; Hematocrit 28.7 % (35.3-44.9); Hemoglobin 9.6 g/dL (11.5-15.4); Immature Granulocytes % 0.7 % (0-4); Lymphocytes # 2.3 K/mcL (0.6-4.6); Lymphocytes % 21.8 %; Mean Corpuscular HGB Conc 33.4 g/dL (31.6-35.5); Mean Corpuscular Hemoglobin 30.2 pg (28.0-33.3); Mean Corpuscular Volume 90.3 fL (83.0-100.0); Mean Platelet Volume 9.2 fL (9.4-12.4); Monocytes # 1.2 K/mcL (0.0-1.3); Monocytes % 11.5 %; Neutrophils # 6.6 K/mcL (1.6-8.9); Platelet Count 283 K/mcL (140-400); Red Blood Count 3.18 M/mcL (3.82-4.97); Red Cell Distribution Width 13.2 % (11.5-14.5); Segmented Neutrophils % 63.8 %; White Blood Count 10.4 K/mcL (4.3-11.1)
[2020-10-09 02:05] LABS: Calcium 8.7 mg/dL (8.6-10.3); Potassium 4.7 mEq/L (3.5-5.1)
[2020-10-09] MEDS: Insulin LISPRO 300 UNITS/3 ML VIAL SUBQ SCH ×2 (08:02→11:44)
[2020-10-09] MEDS: Lactobacillus 1 EACH CAP.SPRINK PO SCH (08:02)
[2020-10-09] MEDS: Valsartan 160 MG TABLET PO SCH (08:02)
[2020-10-09] MEDS: Multivit/Ca/Min/Fe/FA 1 TAB TABLET PO SCH (08:02)
[2020-10-09] MEDS: Aspirin 81 MG TAB.CHEW PO SCH (08:02)
[2020-10-09] MEDS: Cholecalciferol (D-3) 1,000 UNIT (25MCG) TABLET PO SCH (08:02)
[2020-10-09] MEDS: amLODIPine 5 MG TABLET PO SCH (08:02)
[2020-10-09] MEDS ORDERED: Sennosides/Docusate Sodium TABLET PO SCH (11:00)
[2020-10-09 11:43] VITALS: BP 143/48; PULSE 65; TEMP 98.7; O2SAT 95
[2020-10-09 13:17] LABS: Adenovirus Not Detected (Not Detect); Bordetella Pertussis Not Detected (Not Detect); Chlamydophila pneumoniae Not Detected (Not Detect); Coronavirus 229E Not Detected (Not Detect); Coronavirus HKU1 Not Detected (Not Detect); Coronavirus NL63 Not Detected (Not Detect); Coronavirus OC43 Not Detected (Not Detect); Human Metapneumovirus Not Detected (Not Detect); Human Rhinovirus/Enterovirus Not Detected (Not Detect); Influenza A Subtype 2009 H1 Not Detected (Not Detect); Influenza B Not Detected (Not Detect); Mycoplasma pneumoniae Not Detected (Not Detect); Parainfluenza Virus 1 Not Detected (Not Detect); Parainfluenza Virus 2 Not Detected (Not Detect); Parainfluenza Virus 3 Not Detected (Not Detect); Parainfluenza Virus 4 Not Detected (Not Detect); Respiratory Syncytial Virus Not Detected (Not Detect); SARS-CoV-2 Not Detected (Not Detect)
== END 2020-10-09 15:05 | DRG 243 ==
LOC: EMEROOARM 10:49 → 2NNU 17:27
PROVIDERS: ADMIT Internal Medicine; ATTEND Internal Medicine